=== PATIENT | female | born 1965 | race Hispanic/Latino ===

== ENCOUNTER 2018-06-13 11:48 | Inpatient (IN) | payer MEDICAID ==
[2018-06-13 11:51] VITALS: BMI 30.7
--- NOTE | 2018-06-13 12:16 | ED PDOC ---
Arrival/HPI - General Chief Complaint: Abdominal Pain Time Seen by Provider: 06/13/18 11:50 Historian: Patient - History of Present Illness Narrative History of Present Illness (Text): 06/13/18 12:11 52 y/o female with PMH of HTN, Diverticulitis, Ectopic , and COPD presents to the ED c/o abdominal pain x 2 days. Pain is sharp, left-sided, worse in LLQ. Worse with movement. Associated nausea and decreased PO intake. Pt admits to discomfort on urinating her in the ED. BM soft, brown, non-bloody, and daily as per baseline. Menopausal. Denies fevers, chills, diarrhea, constipation, vomiting, chest pain, SOB, palpitations, diaphoresis, back pain, weakness, numbness, or any other associated symptoms. Past Medical History - Infectious Disease Hx of Infectious Diseases: None - Reproductive Menopause: Yes - Cardiac Hx Hypertension: Yes - Pulmonary Hx Chronic Obstructive Pulmonary Disease (COPD): Yes Hx Emphysema: Yes - Gastrointestinal Hx Diverticulitis: Yes - Psychiatric Hx Substance Use: No - Surgical History Other/Comment: diverticulitis sx 2005 - Anesthesia Hx Anesthesia Reactions: No Hx Malignant Hyperthermia: No Family/Social History - Physician Review Nursing Documentation Reviewed: Yes Family/Social History: No Known Family HX Smoking Status: Former Smoker Hx Alcohol Use: No Hx Substance Use: No Allergies/Home Meds Allergies/Adverse Reactions: Allergies levofloxacin [From Levaquin] Allergy (Verified 06/13/18 12:14) SWELLING Home Medications: Home Meds Medication Instructions Recorded Confirmed Fluticasone Propionate [Clarispray] 1 puff NEB TID PRN 06/13/18 06/13/18 Review of Systems - Physician Review All systems were reviewed & negative as marked: Yes - Review of Systems Constitutional: Normal. absent: Fevers Eyes: Normal. absent: Vision Changes ENT: Normal. absent: Sore Throat, Sinus Congestion Respiratory: Normal. absent: SOB, Cough Cardiovascular: Normal. absent: Chest Pain, Syncope Gastrointestinal: Abdominal Pain, Nausea, Anorexia. absent: Stool Changes, Constipation, Diarrhea, Vomiting, Hematochezia Genitourinary Female: Dysuria (mild). absent: Frequency, Vaginal Bleeding, Va ginal Discharge Musculoskeletal: Normal. absent: Back Pain, Neck Pain Skin: Normal. absent: Rash Neurological: Normal. absent: Headache, Dizziness Endocrine: Normal Hemo/Lymphatic: Normal. absent: Adenopathy Psychiatric: Normal Physical Exam Vital Signs Reviewed: Yes Vital Signs Temp Pulse Resp BP Pulse Ox 06/13/18 11:48 97.9 F 101 H 18 138/95 H 98 Temperature: Afebrile Blood Pressure: Normal Pulse: Tachycardic Respiratory Rate: Normal Appearance: Positive for: Well-Appearing, Non-Toxic, Comfortable Pain Distress: None Mental Status: Positive for: Alert and Oriented X 3 - Systems Exam Head: Present: Atraumatic, Normocephalic Pupils: Present: PERRL Extroacular Muscles: Present: EOMI Conjunctiva: Present: Normal Mouth: Present: Moist Mucous Membranes Nose (External): Present: Atraumatic Nose (Internal): Present: Normal Inspection, Moist Neck: Present: Normal Range of Motion Respiratory/Chest: Present: Clear to Auscultation, Good Air Exchange. No: Respiratory Distress, Accessory Muscle Use Cardiovascular: Present: Regular Rate and Rhythm, Normal S1, S2, Peripheal Pulses Present. No: Murmurs Abdomen: Present: Tenderness (LUQ, LLQ), Normal Bowel Sounds. No: Distention, Peritoneal Signs, Rebound, Guarding Back: Present: Normal Inspection. No: CVA Tenderness, Paraspinal Tenderness Upper Extremity: Present: Normal Inspection, Normal ROM, NORMAL PULSES, Neurovascularly Intact, Capillary Refill < 2s. No: Cyanosis, Edema Lower Extremity: Present: Normal Inspection, NORMAL PULSES, Normal ROM, Neurovascularly Intact, Capillary Refill < 2 s. No: Edema, Tenderness, Temperature Abnormalties Neurological: Present: GCS=15, CN II-XII Intact, Speech Normal, Motor Func Grossly Intact, Normal Sensory Function, Gait Normal Skin: Present: Warm, Dry, Normal Color. No: Rashes Lymphatic: No: Cervical Adenopathy Psychiatric: Present: Alert, Oriented x 3, Normal Insight, Normal Concentration, Normal Affect, Normal Mood Medical Decision Making ED Course and Treatment: Initial Plan: * CBC, CMP * Coags * Mg, Phos * UA, culture * Lipase * EKG * CXR * CT Abd/Pelvis * IVF * Pepcid * Zofran * Toradol Patient's pain not controlled with Toradol, will give Morphine 2mg IVP. 15:[address] Browne, who accepts patient for inpatient admission to med-surg with diagnoses of Diverticulitis and UTI. Plan of care discussed with patient, who understands and agrees with plan of care. Patient resting comfortably in stretcher in NAD at this time. Vital signs stable. - Lab Interpretations Lab Results: 06/13/18 12:30 06/13/18 12:30 Lab Results 06/13/18 12:30: Sodium 138, Potassium 3.5 L, Chloride 102, Carbon Dioxide 27, Anion Gap 13, BUN 18, Creatinine 0.8, Est GFR ( Amer) > 60, Est GFR (Non- Af Amer) > 60, Random Glucose 98, Calcium 9.1, Magnesium 1.8, Total Bilirubin 2.0 H, AST 23, ALT 23, Alkaline Phosphatase 81, Total Protein 7.4, Albumin 4.2, Globulin 3.2, Albumin/Globulin Ratio 1.3, Lipase 26 06/13/18 12:30: PT 15.0 H, INR 1.30, APTT 28.3 06/13/18 12:30: WBC 11.7 H, RBC 4.67, Hgb 14.8, Hct 42.2, MCV 90.4, MCH 31.7, MCHC 35.1, RDW 13.9, Plt Count 220, MPV 10.1, Gran % 78.4 H, Lymph % (Auto) 13.8 L, [place] % (Auto) 6.9 H, Eos % (Auto) 0.5 L, Baso % (Auto) 0.4, Gran # 9.14 H, Lymph # (Auto) 1.6, [place] # (Auto) 0.8 H, Eos # (Auto) 0.1, Baso # (Auto) 0.05 06/13/18 12:15: Urine Color Yellow, Urine Appearance Cloudy, Urine pH 6.0, Ur Specific [place] >= 1.030, Urine Protein >=300 H, Urine Glucose (UA) Negative, Urine Ketones Trace H, Urine Blood Large H, Urine Nitrate Negative, Urine Bilirubin Small H, Urine Urobilinogen 0.2, Ur Leukocyte Esterase Trace H, Urine RBC 1 - 3, Urine WBC 10 - 15, Ur Epithelial Cells Many, Amorphous Sediment Small, Urine Bacteria Small I have reviewed the lab results: Yes - RAD Interpretation Narrative RAD Interpretations (Text): CXR: FINDINGS: LUNGS: No active pulmonary disease. PLEURA: No significant pleural effusion identified, no pneumothorax apparent. CARDIOVASCULAR: No aortic atherosclerotic calcification present. Normal cardiac size. No pulmonary vascular congestion. OSSEOUS STRUCTURES: No significant abnormalities. VISUALIZED UPPER ABDOMEN: Normal. OTHER FINDINGS: None. IMPRESSION: No active disease. CT Abd/Pelvis: FINDINGS: LOWER THORAX: Unremarkable. LIVER: Unremarkable. No gross lesion or ductal dilatation. GALLBLADDER AND BILE DUCTS: Unremarkable. PANCREAS: Unremarkable. No gross lesion or ductal dilatation. SPLEEN: Unremarkable. ADRENALS: Unremarkable. No mass. KIDNEYS AND URETERS: Unremarkable. No hydronephrosis. No solid mass. VASCULATURE: Unremarkable. No aortic aneurysm. No aortic atherosclerotic calcification or mural plaque present. BOWEL: There is diverticulitis in the descending colon. There is severe mural thickening and mesenteric inflammation. There is no evidence of abscess formation or free air APPENDIX: Previous appendectomy PERITONEUM: Unremarkable. No free fluid. No free air. LYMPH NODES: Unremarkable. No enlarged lymph nodes. BLADDER: Unremarkable. REPRODUCTIVE: Right-sided adnexal cyst measuring 19 x 43 mm BONES: No acute fracture. OTHER FINDINGS: None. IMPRESSION: There is diverticulitis in the descending colon. There is severe mural thickening and mesenteric inflammation. There is no evidence of abscess formation or free air Web Engineer: Radiologist - EKG Interpretation EKG Interpretation (Text): Rate 81; NSR; Normal intervals; No STEMI, T wave inversions in V1, V2 Compared to prior EKG on 05/27/17; similar with consistent T wave inversions Interpreted by ED Physician: Yes Type: 12 lead EKG Comparison: Com.w/previous EKG Disposition/Present on Arrival - Present on Arrival Any Indicators Present on Arrival: No History of DVT/PE: No History of Uncontrolled Diabetes: No Urinary Catheter: No History of Decub. Ulcer: No History Surgical Site Infection Following: None - Disposition Have Diagnosis and Disposition been Completed?: Yes Diagnosis: Diverticulitis Disposition: HOME/ ROUTINE Disposition Time: 15:15 Patient Plan: Admission Condition: IMPROVED
[2018-06-13] MEDS ORDERED: Sodium Chloride 0.9% 1,000 ML IV STA (12:17)
[2018-06-13 12:27] LABS: URINE BILIRUBIN SMALL (NEGATIVE); URINE BLOOD LARGE (NEGATIVE); URINE GLUCOSE (UA) NEGATIVE (NEGATIVE); URINE LEUKOCYTE ESTERASE TRACE Leu/uL (NEGATIVE); URINE PROTEIN >=300 mg/dL (<30 mg/dL); URINE UROBILINOGEN 0.2 E.U./dL (<1 E.U./dL)
[2018-06-13 12:30] LABS: URINE APPEARANCE CLOUDY (CLEAR); URINE COLOR YELLOW (YELLOW)
[2018-06-13 12:56] LABS: BASO # 0.05 K/mm3 (0.0-2.0); BASO % 0.4 % (0.0-3.0); EOS # 0.1 (0.0-0.7); EOS % 0.5 % (1.5-5.0); GRAN # 9.14 (1.4-6.5); GRAN % 78.4 % (50.0-68.0); HEMOGLOBIN 14.8 g/dL (12.0-16.0); LYMPH # 1.6 (1.2-3.4); LYMPH % 13.8 % (22.0-35.0); MEAN CELL VOLUME 90.4 fl (80.0-105.0); MEAN CORPUSCULAR HEMOGLOBIN 31.7 pg (25.0-35.0); MEAN CORPUSCULAR HGB CONC 35.1 g/dl (31.0-37.0); MEAN PLATELET VOLUME 10.1 fl (7.0-11.0); MONO # 0.8 (0.1-0.6); MONO % 6.9 % (1.0-6.0); RBC 4.67 10^6/uL (3.5-6.1); RED CELL DISTRIBUTION WIDTH 13.9 % (11.5-14.5); WHITE BLOOD COUNT 11.7 10^3/uL (4.5-11.0)
[2018-06-13 12:57] LABS: URINE EPITHELIAL CELLS MANY /hpf (0-5)
[2018-06-13 12:58] LABS: URINE AMORPHOUS SEDIMENT SMALL; URINE BACTERIA SMALL (NEG)
[2018-06-13 13:07] LABS: INR 1.3; PARTIAL THROMBOPLASTIN TIME 28.3 Seconds (25.1-36.5)
[2018-06-13 13:25] LABS: ALB/GLOB RATIO 1.3 (1.1-1.8); ALBUMIN 4.2 g/dL (3.0-4.8); ALT/SGPT 23 U/L (7-56); AST/SGOT 23 U/L (14-36); BLOOD UREA NITROGEN 18 mg/dL (7-21); CALCIUM 9.1 mg/dL (8.4-10.5); GFR NON-AFRICAN AMERICAN > 60
[2018-06-13 13:27] LABS: LIPASE 26 U/L (23-300)
[2018-06-13] MEDS ORDERED: Iohexol 350 MG/100 ML VIAL ONE (13:46)
--- NOTE | 2018-06-13 14:37 | CT ---
Date of service: 06/13/2018 PROCEDURE: CT Abdomen and Pelvis with contrast HISTORY: left sided abdominal pain COMPARISON: None. TECHNIQUE: Contrast dose: 100 cc of Omni 350 Radiation dose: Total exam DLP = 567.23 mGy-cm. This CT exam was performed using one or more of the following dose reduction techniques: Automated exposure control, adjustment of the mA and/or kV according to patient size, and/or use of iterative reconstruction technique. FINDINGS: LOWER THORAX: Unremarkable. LIVER: Unremarkable. No gross lesion or ductal dilatation. GALLBLADDER AND BILE DUCTS: Unremarkable. PANCREAS: Unremarkable. No gross lesion or ductal dilatation. SPLEEN: Unremarkable. ADRENALS: Unremarkable. No mass. KIDNEYS AND URETERS: Unremarkable. No hydronephrosis. No solid mass. VASCULATURE: Unremarkable. No aortic aneurysm. No aortic atherosclerotic calcification or mural plaque present. BOWEL: There is diverticulitis in the descending colon. There is severe mural thickening and mesenteric inflammation. There is no evidence of abscess formation or free air APPENDIX: Previous appendectomy PERITONEUM: Unremarkable. No free fluid. No free air. LYMPH NODES: Unremarkable. No enlarged lymph nodes. BLADDER: Unremarkable. REPRODUCTIVE: Right-sided adnexal cyst measuring 19 x 43 mm BONES: No acute fracture. OTHER FINDINGS: None. IMPRESSION: There is diverticulitis in the descending colon. There is severe mural thickening and mesenteric inflammation. There is no evidence of abscess formation or free air
--- NOTE | 2018-06-13 14:47 | RAD ---
Date of service: 06/13/2018 HISTORY: abdominal pain COMPARISON: No prior. FINDINGS: LUNGS: No active pulmonary disease. PLEURA: No significant pleural effusion identified, no pneumothorax apparent. CARDIOVASCULAR: No aortic atherosclerotic calcification present. Normal cardiac size. No pulmonary vascular congestion. OSSEOUS STRUCTURES: No significant abnormalities. VISUALIZED UPPER ABDOMEN: Normal. OTHER FINDINGS: None. IMPRESSION: No active disease.
--- NOTE | 2018-06-13 15:30 | CARD ---
APPROVED REPORT Date of service: 06/13/2018 EKG Measurement Heart [id number] <Conclusion> Poor data quality, interpretation may be adversely affected Normal sinus rhythm Cannot rule out Anterior infarct, age undetermined Abnormal ECG
[2018-06-13] MEDS ORDERED: Morphine 2 mg/ml ISec IVP STA (15:35)
[2018-06-13] MEDS ORDERED: metroNIDAZOLE IV 500 mg/100 ml 500 MG/100 ML BAG IVPB STA (15:50)
[2018-06-13] MEDS ORDERED: cefTRIAXone 1 gm 1 GM/100 ML BAG IVPB STA (15:51)
--- NOTE | 2018-06-13 16:48 | CP.PCM.HP ---
<FilipeBee salgado - Last Filed: 06/14/18 06:27> History of Present Illness - History of Present Illness History of Present Illness: Bee Dent PGY-1, Medicine H&P Note for Dr. Browne: CC: SOB x 2 days: Pt is a 52 yo F with pmhx of diverticulitis s/p hemicolectomy , HTN, ectopic , COPD (never intubated), who presents for 2 day hx of abd pain. Pt reports that the pain started 2 days ago, it started at 2 AM and woke her up. She states that the pain is localized to the LLQ and she rates it as a 7/10 that is non-radiating, made worse with movement or coughing. She states that she cant tolerate a diet since she becomes very nauseous but has not vomited as of yet. She reports her last about of diverticulitis was in when they performed a hemicolectomy. She is currently admitting to subjective fevers, chills, LLQ abd pain, nausea and dysuria, once which started in ED. She denies chest pain, palpitations, SOB, cough, or vomiting. Pmhx:diverticulitis s/p hemicolectomy , HTN, ectopic , COPD (never intubated) Pshx: Appendectomy, hemicolectomy , endoscopy, colonoscopy Meds: Albuterol inhaler All: Levaquin - hives and facial swelling Social: Quit smoking 1 year ago, smoked 1 ppd before quitting, Denies etoh and illicit drug use Fam: Mom: DM PMD: Dr. Duarte Pharm: Nataliya Present on Admission - Present on Admission Any Indicators Present on Admission: No Review of Systems - Review of Systems Review of Systems: 12 point ROS reviewed and is negative except for noted in HPI above. Past Patient History - Infectious Disease Hx of Infectious Diseases: None - Past Social History Smoking Status: Former Smoker - CARDIAC Hx Hypertension: Yes - PULMONARY Hx Chronic Obstructive Pulmonary Disease (COPD): Yes Hx Emphysema: Yes - GASTROINTESTINAL Hx Diverticulitis: Yes - PSYCHIATRIC Hx Substance Use: No - SURGICAL HISTORY Other/Comment: diverticulitis sx 2005 - ANESTHESIA Hx Anesthesia Reactions: No Hx Malignant Hyperthermia: No Meds Allergies/Adverse Reactions: Allergies Allergy/AdvReac Type Severity Reaction Status Date / Time levofloxacin [From Levaquin] Allergy SWELLING Verified 06/13/18 12:14 Physical Exam - Constitutional Appears: Non-toxic, No Acute Distress, Other (uncomfortable) - Head Exam Head Exam: ATRAUMATIC, NORMAL INSPECTION, NORMOCEPHALIC - Eye Exam Eye Exam: EOMI, Normal appearance, PERRL - Respiratory Exam Respiratory Exam: Clear to Auscultation Bilateral, NORMAL BREATHING PATTERN. absent: Accessory Muscle Use, Decreased Breath Sounds, Rales, Rhonchi, Wheezes, Respiratory Distress, Stridor - Cardiovascular Exam Cardiovascular Exam: RRR, +S1, +S2. absent: Diastolic murmur, Gallop, Rubs - GI/Abdominal Exam GI & Abdominal Exam: Guarding, Normal Bowel Sounds, Soft, Tenderness (Present in LLQ). absent: Rigid - Extremities Exam Extremities exam: Positive for: full ROM, normal capillary refill, normal inspection, pedal pulses present. Negative for: calf tenderness, pedal edema - Back Exam Back exam: NORMAL INSPECTION. absent: CVA tenderness (L), CVA tenderness (R) - Neurological Exam Neurological exam: Alert, Oriented x3 - Psychiatric Exam Psychiatric exam: Normal Affect, Normal Mood - Skin Skin Exam: Dry, Intact, Normal Color, Warm Results - Vital Signs Recent Vital Signs: Last Vital Signs Temp 98.8 F 06/13/18 15:20 Pulse 88 06/13/18 15:20 Resp 16 06/13/18 15:20 BP 133/90 06/13/18 15:20 Pulse Ox 97 06/13/18 15:20 - Labs Result Diagrams: 06/13/18 12:30 06/13/18 12:30 Labs: Laboratory Results - last 24 hr 06/13/18 06/13/18 06/13/18 12:15 12:30 12:30 WBC 11.7 H RBC 4.67 Hgb 14.8 Hct 42.2 MCV 90.4 MCH 31.7 MCHC 35.1 RDW 13.9 Plt Count 220 MPV 10.1 Gran % 78.4 H Lymph % (Auto) 13.8 L [place] % (Auto) 6.9 H Eos % (Auto) 0.5 L Baso % (Auto) 0.4 Gran # 9.14 H Lymph # (Auto) 1.6 [place] # (Auto) 0.8 H Eos # (Auto) 0.1 Baso # (Auto) 0.05 PT 15.0 H INR 1.30 APTT 28.3 Sodium Potassium Chloride Carbon Dioxide Anion Gap BUN Creatinine Est GFR ( Amer) Est GFR (Non-Af Amer) Random Glucose Calcium Magnesium Total Bilirubin AST ALT Alkaline Phosphatase Total Protein Albumin Globulin Albumin/Globulin Ratio Lipase Urine Color Yellow Urine Appearance Cloudy Urine pH 6.0 Ur Specific [place] >= 1.030 Urine Protein >=300 H Urine Glucose (UA) Negative Urine Ketones Trace H Urine Blood Large H Urine Nitrate Negative Urine Bilirubin Small H Urine Urobilinogen 0.2 Ur Leukocyte Esterase Trace H Urine RBC 1 - 3 Urine WBC 10 - 15 Ur Epithelial Cells Many Amorphous Sediment Small Urine Bacteria Small 06/13/18 12:30 WBC RBC Hgb Hct MCV MCH MCHC RDW Plt Count MPV Gran % Lymph % (Auto) [place] % (Auto) Eos % (Auto) Baso % (Auto) Gran # Lymph # (Auto) [place] # (Auto) Eos # (Auto) Baso # (Auto) PT INR APTT Sodium 138 Potassium 3.5 L Chloride 102 Carbon Dioxide 27 Anion Gap 13 BUN 18 Creatinine 0.8 Est GFR ( Amer) > 60 Est GFR (Non-Af Amer) > 60 Random Glucose 98 Calcium 9.1 Magnesium 1.8 Total Bilirubin 2.0 H AST 23 ALT 23 Alkaline Phosphatase 81 Total Protein 7.4 Albumin 4.2 Globulin 3.2 Albumin/Globulin Ratio 1.3 Lipase 26 Urine Color Urine Appearance Urine pH Ur Specific [place] Urine Protein Urine Glucose (UA) Urine Ketones Urine Blood Urine Nitrate Urine Bilirubin Urine Urobilinogen Ur Leukocyte Esterase Urine RBC Urine WBC Ur Epithelial Cells Amorphous Sediment Urine Bacteria Assessment & Plan - Assessment and Plan (Free Text) Assessment: Pt is a 52 yo F with pmhx of diverticulitis s/p hemicolectomy '05, HTN, ectopic , COPD (never intubated), who presents for 2 day hx of abd pain. CT abd/pelvis was done in ED, showed diverticulitis without evidence of abscess or free air. Plan: 1. Diverticulitis: - CT abd/Pelvis showed diverticulitis without abscess or free air, severe mural thickening and inflammation - Rocephin 1gm IV qd - Flagyl 500 TID - NPO - NS @ 100/hr - morphine 2 q4 IVP - Protonix 40 IVP - Zofran 4 q6 - GI consulted - Mayra - Surgery Consulted - [place] 2. Hypokalemia: - Repleting now, will follow up w/ AM labs 3. 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 Hx of COPD: - Duonebs Q4 PRN - Counseled pt to stop smoking 5. Hx of tobacco abuse: - Nicotine patch 6. PPX: GI: Protonix IV DVT: SCDs <Lorie Browne A - Last Filed: 06/14/18 21:25> Results - Vital Signs Recent Vital Signs: Last Vital Signs Temp 98.8 F 06/14/18 14:00 Pulse 83 06/14/18 14:00 Resp 18 06/14/18 14:00 BP 151/99 H 06/14/18 14:00 Pulse Ox 94 L 06/14/18 14:00 - Labs Result Diagrams: 06/14/18 08:30 06/14/18 08:30 Labs: Laboratory Results - last 24 hr 06/14/18 06/14/18 08:30 08:30 WBC 8.9 D RBC 3.99 Hgb 12.5 D Hct 36.1 MCV 90.5 MCH 31.3 MCHC 34.6 RDW 13.6 Plt Count 187 MPV 10.1 Gran % 75.6 H Lymph % (Auto) 17.0 L [place] % (Auto) 5.4 Eos % (Auto) 1.6 Baso % (Auto) 0.4 Gran # 6.75 H Lymph # (Auto) 1.5 [place] # (Auto) 0.5 Eos # (Auto) 0.1 Baso # (Auto) 0.04 Sodium 137 Potassium 3.9 Chloride 105 Carbon Dioxide 25 Anion Gap 11 BUN 15 Creatinine 0.7 Est GFR ( Amer) > 60 Est GFR (Non-Af Amer) > 60 Random Glucose 83 Calcium 8.6 Total Bilirubin 1.1 AST 19 ALT 24 Alkaline Phosphatase 66 Total Protein 6.5 Albumin 3.6 Globulin 2.8 Albumin/Globulin Ratio 1.3 Attending/Attestation - Attestation I have personally seen and examined this patient.: Yes I have fully participated in the care of the patient.: Yes I have reviewed all pertinent clinical information: Yes
[2018-06-13] MEDS ORDERED: Albuterol-Ipratrop 3 mg / 0.5 (3 ml) UD IH PRN (17:01)
[2018-06-13] MEDS ORDERED: Potassium Chl 20mEq & D5W 1,000 ML IV SCH (18:15)
[2018-06-13] MEDS: Morphine 2 mg/ml ISec IVP PRN ×2 (20:16→23:28)
[2018-06-13] MEDS: metroNIDAZOLE IV 500 mg/100 ml 500 MG/100 ML BAG IVPB SCH (23:27)
--- NOTE | 2018-06-14 02:03 | CP.PCM.CON ---
History of Present Illness - History of Present Illness History of Present Illness: 52F with PMHx of HTN, COPD, emphysema, colovaginal fistula, diverticulitis s/p sigmoidectomy with primary anastomosis in 2004, presented to [facility] with complaints of abdominal pain x2 days. Patient reports abdominal pain began Thursday at 2AM. Patient describes abdominal pain as sharp and localized to the LLQ. Patient rates abdominal pain as an 8/10 at its worst. Patient reports nausea but denies emesis. Patient states she had a sigmoidectomy back in 2004 after she was diagnosed with a colovaginal fistula 2/2 recurrent bouts of d iverticulitis. At time of examination patient denied fever/chills, chest pain, SOB, vomiting. Reports dysuria. Passing flatus. PMHx: as stated above PSHx: open appendectomy, sigmoidectomy w/ primary anastomosis (2004) Allergies: Levaquin - hives and facial swelling Social: Quit smoking 14 months ago, smoked 1 ppd x37yrs. Denies EtOH use. Denies illicit drug use Review of Systems - Review of Systems Review of Systems: 10 pt ROS unremarkable, except as stated in HPI Past Patient History - Infectious Disease Hx of Infectious Diseases: None - Past Social History Smoking Status: Former Smoker - CARDIAC Hx Hypertension: Yes - PULMONARY Hx Chronic Obstructive Pulmonary Disease (COPD): Yes Hx Emphysema: Yes - MUSCULOSKELETAL/RHEUMATOLOGICAL Hx Falls: No - GASTROINTESTINAL Hx Diverticulitis: Yes - PSYCHIATRIC Hx Substance Use: No - SURGICAL HISTORY Other/Comment: diverticulitis sx 2004 - ANESTHESIA Hx Anesthesia Reactions: No Hx Malignant Hyperthermia: No Meds Allergies/Adverse Reactions: Allergies Allergy/AdvReac Type Severity Reaction Status Date / Time levofloxacin [From Levaquin] Allergy SWELLING Verified 06/13/18 12:14 - Medications Medications: Current Medications Albuterol/Ipratropium (Duoneb 3 Mg/0.5 Mg (3 Ml) Ud) 3 ml IH [id number] PRN PRN Reason: Shortness of Breath Metronidazole (Flagyl) 500 mg in 100 mls @ 100 mls/hr IVPB Q8 RADHA; Protocol Last Admin: 06/13/18 23:27 Dose: 100 mls/hr Ceftriaxone Sodium (Rocephin 1 Gram Ivpb) 1 gm in 100 mls @ 100 mls/hr IVPB DAILY [facility]; Protocol Lactated Ringer's (Lactated Ringer's) 1,000 mls @ 100 mls/hr IV .Q10H RADHA Morphine Sulfate (Morphine) 2 mg IVP Q4H PRN PRN Reason: Pain, moderate (4-7) Last Admin: 06/13/18 23:28 Dose: 2 mg Nicotine (Nicoderm Cq) 1 patch TD DAILY [facility] Ondansetron HCl (Zofran Inj) 4 mg IVP Q6H PRN PRN Reason: Nausea/Vomiting Pantoprazole Sodium (Protonix Inj) 40 mg IVP DAILY [facility] Physical Exam - Constitutional Appears: No Acute Distress - Head Exam Head Exam: NORMOCEPHALIC - Eye Exam Eye Exam: EOMI, Normal appearance - ENT Exam ENT Exam: Mucous Membranes Moist - Respiratory Exam Respiratory Exam: NORMAL BREATHING PATTERN - Cardiovascular Exam Cardiovascular Exam: +S1, +S2 - GI/Abdominal Exam GI & Abdominal Exam: Rebound, Soft, Tenderness. absent: Distended, Firm, Guarding, Rigid - Neurological Exam Neurological exam: Alert, Oriented x3 - Psychiatric Exam Psychiatric exam: Normal Mood - Skin Skin Exam: Dry, Intact, Warm Results - Vital Signs Recent Vital Signs: Last Vital Signs Temp 98.8 F 06/13/18 15:20 Pulse 86 06/13/18 18:14 Resp 16 06/13/18 18:14 BP 140/95 H 06/13/18 18:14 Pulse Ox 97 06/13/18 15:20 - Labs Result Diagrams: 06/13/18 12:30 06/13/18 12:30 Labs: Laboratory Results - last 24 hr 06/13/18 06/13/18 06/13/18 12:15 12:30 12:30 WBC 11.7 H RBC 4.67 Hgb 14.8 Hct 42.2 MCV 90.4 MCH 31.7 MCHC 35.1 RDW 13.9 Plt Count 220 MPV 10.1 Gran % 78.4 H Lymph % (Auto) 13.8 L [place] % (Auto) 6.9 H Eos % (Auto) 0.5 L Baso % (Auto) 0.4 Gran # 9.14 H Lymph # (Auto) 1.6 [place] # (Auto) 0.8 H Eos # (Auto) 0.1 Baso # (Auto) 0.05 PT 15.0 H INR 1.30 APTT 28.3 Sodium Potassium Chloride Carbon Dioxide Anion Gap BUN Creatinine Est GFR ( Amer) Est GFR (Non-Af Amer) Random Glucose Calcium Magnesium Total Bilirubin AST ALT Alkaline Phosphatase Total Protein Albumin Globulin Albumin/Globulin Ratio Lipase Urine Color Yellow Urine Appearance Cloudy Urine pH 6.0 Ur Specific [place] >= 1.030 Urine Protein >=300 H Urine Glucose (UA) Negative Urine Ketones Trace H Urine Blood Large H Urine Nitrate Negative Urine Bilirubin Small H Urine Urobilinogen 0.2 Ur Leukocyte Esterase Trace H Urine RBC 1 - 3 Urine WBC 10 - 15 Ur Epithelial Cells Many Amorphous Sediment Small Urine Bacteria Small 06/13/18 12:30 WBC RBC Hgb Hct MCV MCH MCHC RDW Plt Count MPV Gran % Lymph % (Auto) [place] % (Auto) Eos % (Auto) Baso % (Auto) Gran # Lymph # (Auto) [place] # (Auto) Eos # (Auto) Baso # (Auto) PT INR APTT Sodium 138 Potassium 3.5 L Chloride 102 Carbon Dioxide 27 Anion Gap 13 BUN 18 Creatinine 0.8 Est GFR ( Amer) > 60 Est GFR (Non-Af Amer) > 60 Random Glucose 98 Calcium 9.1 Magnesium 1.8 Total Bilirubin 2.0 H AST 23 ALT 23 Alkaline Phosphatase 81 Total Protein 7.4 Albumin 4.2 Globulin 3.2 Albumin/Globulin Ratio 1.3 Lipase 26 Urine Color Urine Appearance Urine pH Ur Specific [place] Urine Protein Urine Glucose (UA) Urine Ketones Urine Blood Urine Nitrate Urine Bilirubin Urine Urobilinogen Ur Leukocyte Esterase Urine RBC Urine WBC Ur Epithelial Cells Amorphous Sediment Urine Bacteria Assessment & Plan - Assessment and Plan (Free Text) Assessment: 52F w/ descending colon diverticulitis Plan: -NPO -IVF -ABx -Analgesics prn -Anti-emetics prn -Serial abd exams -Will follow D/w Dr. Jaren Guzmán PGY3
[2018-06-14] MEDS: Lactated Ringer's 1,000 ML IV SCH ×3 (04:05→16:20)
[2018-06-14] MEDS: Morphine 2 mg/ml ISec IVP PRN ×2 (04:06→22:13)
[2018-06-14] MEDS: metroNIDAZOLE IV 500 mg/100 ml 500 MG/100 ML BAG IVPB SCH ×3 (05:14→22:12)
--- NOTE | 2018-06-14 07:50 | CP.PCM.PN ---
Subjective - Date & Time of Evaluation Date of Evaluation: 06/14/18 Time of Evaluation: 07:48 - Subjective Subjective: Surgery Progress Note for Dr. Eastman Patient seen and examined at bedside this morning. She states that for once, she is beginning to feel hungry, so much that she is wanting more ice chips. She states her abdominal pain has been decreasing. Denies nausea, vomiting, fevers, chills. She would like to know as soon as she is cleared to advance her diet. Objective - Vital Signs/Intake and Output Vital Signs (last 24 hours): Temp Pulse Resp BP Pulse Ox 98.8 F 86 16 140/95 H 97 06/13/18 15:20 06/13/18 18:14 06/13/18 18:14 06/13/18 18:14 06/13/18 15:20 - Medications Medications: Current Medications Albuterol/Ipratropium (Duoneb 3 Mg/0.5 Mg (3 Ml) Ud) 3 ml IH [id number] PRN PRN Reason: Shortness of Breath Metronidazole (Flagyl) 500 mg in 100 mls @ 100 mls/hr IVPB Q8 [facility]; Protocol Last Admin: 06/14/18 05:14 Dose: 100 mls/hr Ceftriaxone Sodium (Rocephin 1 Gram Ivpb) 1 gm in 100 mls @ 100 mls/hr IVPB DAILY [facility]; Protocol Lactated Ringer's (Lactated Ringer's) 1,000 mls @ 100 mls/hr IV .Q10H [facility] Last Admin: 06/14/18 04:05 Dose: 100 mls/hr Morphine Sulfate (Morphine) 2 mg IVP Q4H PRN PRN Reason: Pain, moderate (4-7) Last Admin: 06/14/18 04:06 Dose: 2 mg Nicotine (Nicoderm Cq) 1 patch TD DAILY [facility] Ondansetron HCl (Zofran Inj) 4 mg IVP Q6H PRN PRN Reason: Nausea/Vomiting Pantoprazole Sodium (Protonix Inj) 40 mg IVP DAILY [facility] - Labs Labs: 06/13/18 12:30 06/13/18 12:30 PT 15.0 SECONDS (9.4-12.5) H 06/13/18 12:30 INR 1.30 06/13/18 12:30 APTT 28.3 Seconds (25.1-36.5) 06/13/18 12:30 - Constitutional Appears: Well, Non-toxic - Head Exam Head Exam: ATRAUMATIC, NORMAL INSPECTION, NORMOCEPHALIC - Eye Exam Eye Exam: EOMI, Normal appearance - Neck Exam Neck Exam: Normal Inspection - Respiratory Exam Respiratory Exam: Wheezes (faint expiratory wheezing throughout all lung saeed) - Cardiovascular Exam Cardiovascular Exam: REGULAR RHYTHM - GI/Abdominal Exam GI & Abdominal Exam: Soft, Tenderness (LLQ TTP), Normal Bowel Sounds - Extremities Exam Extremities Exam: Normal Inspection - Neurological Exam Neurological Exam: Alert, Awake, Oriented x3 - Psychiatric Exam Psychiatric exam: Normal Affect, Normal Mood - Skin Skin Exam: Dry, Intact, Normal Color, Warm Assessment and Plan - Assessment and Plan (Free Text) Assessment: 52F w/ descending colon diverticulitis -Keep NPO except ice chips today, 06/14, to ensure adequate bowel rest -IVF -ABx -Analgesics prn -Anti-emetics prn -Serial abd exams -encourage OOB and IS -Will continue to follow Jasmin Law PGY1
[2018-06-14 08:42] LABS: BASO # 0.04 K/mm3 (0.0-2.0); BASO % 0.4 % (0.0-3.0); EOS # 0.1 (0.0-0.7); EOS % 1.6 % (1.5-5.0); GRAN # 6.75 (1.4-6.5); GRAN % 75.6 % (50.0-68.0); LYMPH # 1.5 (1.2-3.4); MEAN CELL VOLUME 90.5 fl (80.0-105.0); MEAN CORPUSCULAR HEMOGLOBIN 31.3 pg (25.0-35.0); MEAN CORPUSCULAR HGB CONC 34.6 g/dl (31.0-37.0); MEAN PLATELET VOLUME 10.1 fl (7.0-11.0); MONO # 0.5 (0.1-0.6); MONO % 5.4 % (1.0-6.0); RBC 3.99 10^6/uL (3.5-6.1); RED CELL DISTRIBUTION WIDTH 13.6 % (11.5-14.5); WHITE BLOOD COUNT 8.9 10^3/uL (4.5-11.0)
[2018-06-14 08:43] LABS: HEMOGLOBIN 12.5 g/dL (12.0-16.0)
[2018-06-14 08:44] LABS: ALB/GLOB RATIO 1.3 (1.1-1.8); ALBUMIN 3.6 g/dL (3.0-4.8); ALT/SGPT 24 U/L (7-56); AST/SGOT 19 U/L (14-36); BLOOD UREA NITROGEN 15 mg/dL (7-21); CALCIUM 8.6 mg/dL (8.4-10.5); GFR NON-AFRICAN AMERICAN > 60
[2018-06-14] MEDS: cefTRIAXone 1 gm 1 GM/100 ML BAG IVPB SCH (10:19)
--- NOTE | 2018-06-14 13:23 | CP.PCM.PN ---
Subjective - Date & Time of Evaluation Date of Evaluation: 06/14/18 Time of Evaluation: 09:00 - Subjective Subjective: Roderick Velazquez, PGY-1 Progress Note for Hospitalist Service Patient seen and evaluated at bedside. No acute events reported overnight. Pat ient reports mild abdominal pain. Denies fevers, chills, nausea, vomiting, distension. Patient reports hunger and desire to eat. Objective - Vital Signs/Intake and Output Vital Signs (last 24 hours): Temp Pulse Resp BP Pulse Ox 97.9 F 90 20 132/83 90 L 06/14/18 06:00 06/14/18 06:00 06/14/18 06:00 06/14/18 06:00 06/14/18 06:00 - Medications Medications: Current Medications Acetaminophen (Tylenol 325mg Tab) 650 mg PO Q6H PRN PRN Reason: Headache Albuterol/Ipratropium (Duoneb 3 Mg/0.5 Mg (3 Ml) Ud) 3 ml IH [id number] PRN PRN Reason: Shortness of Breath Metronidazole (Flagyl) 500 mg in 100 mls @ 100 mls/hr IVPB Q8 [facility]; Protocol Last Admin: 06/14/18 05:14 Dose: 100 mls/hr Ceftriaxone Sodium (Rocephin 1 Gram Ivpb) 1 gm in 100 mls @ 100 mls/hr IVPB DAILY [facility]; Protocol Last Admin: 06/14/18 10:19 Dose: 100 mls/hr Lactated Ringer's (Lactated Ringer's) 1,000 mls @ 100 mls/hr IV .Q10H [facility] Last Admin: 06/14/18 04:05 Dose: 100 mls/hr Morphine Sulfate (Morphine) 2 mg IVP Q4H PRN PRN Reason: Pain, moderate (4-7) Last Admin: 06/14/18 04:06 Dose: 2 mg Nicotine (Nicoderm Cq) 1 patch TD DAILY [facility] Last Admin: 06/14/18 10:37 Dose: Not Given Ondansetron HCl (Zofran Inj) 4 mg IVP Q6H PRN PRN Reason: Nausea/Vomiting Pantoprazole Sodium (Protonix Inj) 40 mg IVP DAILY [facility] Last Admin: 06/14/18 10:19 Dose: 40 mg - Labs Labs: 06/14/18 08:30 06/14/18 08:30 PT 15.0 SECONDS (9.4-12.5) H 06/13/18 12:30 INR 1.30 06/13/18 12:30 APTT 28.3 Seconds (25.1-36.5) 06/13/18 12:30 - Additional Findings Additional findings: - Constitutional Appears: Non-toxic, No Acute Distress, Other (uncomfortable) - Head Exam Head Exam: ATRAUMATIC, NORMAL INSPECTION, NORMOCEPHALIC - Eye Exam Eye Exam: EOMI, Normal appearance, PERRL - Respiratory Exam Respiratory Exam: Clear to Auscultation Bilateral, NORMAL BREATHING PATTERN. absent: Accessory Muscle Use, Decreased Breath Sounds, Rales, Rhonchi, Wheezes, Respiratory Distress, Stridor - Cardiovascular Exam Cardiovascular Exam: RRR, +S1, +S2. absent: Diastolic murmur, Gallop, Rubs - GI/Abdominal Exam GI & Abdominal Exam: Guarding LLQ, Normal Bowel Sounds, Soft, Tenderness (Present in LLQ). absent: Rigid - Extremities Exam Extremities exam: Positive for: full ROM, normal capillary refill, normal inspection, pedal pulses present. Negative for: calf tenderness, pedal edema - Back Exam Back exam: NORMAL INSPECTION. absent: CVA tenderness (L), CVA tenderness (R) - Neurological Exam Neurological exam: Alert, Oriented x3 - Psychiatric Exam Psychiatric exam: Normal Affect, Normal Mood - Skin Skin Exam: Dry, Intact, Normal Color, Warm Assessment and Plan - Assessment and Plan (Free Text) Assessment: 52 yo F with pmhx of diverticulitis s/p hemicolectomy '05, HTN, ectopic , COPD (never intubated), who presents for 2 day hx of abd pain. CT abd/pelvis showed diverticulitis without evidence of abscess or free air. Plan: Diverticulitis: - CT abd/Pelvis showed diverticulitis without abscess or free air, severe mural thickening and inflammation - Rocephin 1gm IV qd - Flagyl 500 TID - NPO - NS @ 100/hr - morphine 2 q4 IVP - Protonix 40 IVP - Zofran 4 mg q6 - GI consulted - Dr. Nunez - recs appreciated - Surgery Consulted - Dr. 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 Alfaro. Roderick Velazquez, PGY-1
--- NOTE | 2018-06-14 15:50 | CP.PCM.CON ---
<Darrell Weinstein - Last Filed: 06/14/18 20:09> History of Present Illness - History of Present Illness History of Present Illness: PGY6 GI Fellow Consult Note Patient is a 52yo female with PMHx significant for complicated diverticulitis with colovaginal fistula formation and subsequent sigmoidectomy and repair, HTN, ectopic , COPD who presented to the ED with complaint of left lower quadrant abdominal pain. Symptoms began Thursday evening and progressively worsened over the weekend with associated loose stool. Patient developed nausea, decreased appetite and noted pain was exacerbated by movement and walking. As pain became unbearable at home and she could no longer ambulate without discomfort, she came to the ED for evaluation. Prior to Thursday, patient was well and had no complaints. Specifically, she denies any recent weight loss, sick contacts or travel. 12 system ROS performed and negative except where stated PMHx: See HPI PSHx: Appendectomy, sigmoidectomy w/ primary anastomosis (2004) FHx: Discussed with patient and denies any significant family history Social: Former smoker (>1 year but 37 pack year history), denies EtOH or illicit drug use Endo: EGD/Colonoscopy in 2016 at [facility] – [place], [place] - unknown results and not available for review at this time Past Patient History - Infectious Disease Hx of Infectious Diseases: None - Past Social History Smoking Status: Former Smoker - CARDIAC Hx Hypertension: Yes - PULMONARY Hx Chronic Obstructive Pulmonary Disease (COPD): Yes Hx Emphysema: Yes - MUSCULOSKELETAL/RHEUMATOLOGICAL Hx Falls: No - GASTROINTESTINAL Hx Diverticulitis: Yes - PSYCHIATRIC Hx Substance Use: No - SURGICAL HISTORY Other/Comment: diverticulitis sx 2004 - ANESTHESIA Hx Anesthesia Reactions: No Hx Malignant Hyperthermia: No Meds Allergies/Adverse Reactions: Allergies Allergy/AdvReac Type Severity Reaction Status Date / Time levofloxacin [From Levaquin] Allergy SWELLING Verified 06/13/18 12:14 - Medications Medications: Current Medications Acetaminophen (Tylenol 325mg Tab) 650 mg PO Q6H PRN PRN Reason: Headache Albuterol/Ipratropium (Duoneb 3 Mg/0.5 Mg (3 Ml) Ud) 3 ml IH [id number] PRN PRN Reason: Shortness of Breath Metronidazole (Flagyl) 500 mg in 100 mls @ 100 mls/hr IVPB Q8 [facility]; Protocol Last Admin: 06/14/18 13:15 Dose: 100 mls/hr Ceftriaxone Sodium (Rocephin 1 Gram Ivpb) 1 gm in 100 mls @ 100 mls/hr IVPB DAILY [facility]; Protocol Last Admin: 06/14/18 10:19 Dose: 100 mls/hr Lactated Ringer's (Lactated Ringer's) 1,000 mls @ 100 mls/hr IV .Q10H [facility] Last Admin: 06/14/18 04:05 Dose: 100 mls/hr Morphine Sulfate (Morphine) 2 mg IVP Q4H PRN PRN Reason: Pain, moderate (4-7) Last Admin: 06/14/18 04:06 Dose: 2 mg Nicotine (Nicoderm Cq) 1 patch TD DAILY [facility] Last Admin: 06/14/18 10:37 Dose: Not Given Ondansetron HCl (Zofran Inj) 4 mg IVP Q6H PRN PRN Reason: Nausea/Vomiting Pantoprazole Sodium (Protonix Inj) 40 mg IVP DAILY [facility] Last Admin: 06/14/18 10:19 Dose: 40 mg Physical Exam - Constitutional Appears: Non-toxic, No Acute Distress - Eye Exam Eye Exam: EOMI, PERRL - ENT Exam ENT Exam: Mucous Membranes Moist - Respiratory Exam Respiratory Exam: Clear to Auscultation Bilateral. absent: Rales, Rhonchi, Wheezes - Cardiovascular Exam Cardiovascular Exam: RRR, +S1, +S2 - GI/Abdominal Exam GI & Abdominal Exam: Normal Bowel Sounds, Soft, Tenderness (LLQ). absent: Distended, Firm, Guarding, Hernia, Organomegaly, Rigid - Extremities Exam Extremities exam: Positive for: normal inspection. Negative for: pedal edema - Neurological Exam Neurological exam: Alert, Oriented x3 - Psychiatric Exam Psychiatric exam: Normal Affect, Normal Mood - Skin Skin Exam: Dry, Warm Results - Vital Signs Recent Vital Signs: Last Vital Signs Temp 98.8 F 06/14/18 14:00 Pulse 83 06/14/18 14:00 Resp 18 06/14/18 14:00 BP 151/99 H 06/14/18 14:00 Pulse Ox 94 L 06/14/18 14:00 - Labs Result Diagrams: 06/14/18 08:30 06/14/18 08:30 Labs: Laboratory Results - last 24 hr 06/14/18 06/14/18 08:30 08:30 WBC 8.9 D RBC 3.99 Hgb 12.5 D Hct 36.1 MCV 90.5 MCH 31.3 MCHC 34.6 RDW 13.6 Plt Count 187 MPV 10.1 Gran % 75.6 H Lymph % (Auto) 17.0 L [place] % (Auto) 5.4 Eos % (Auto) 1.6 Baso % (Auto) 0.4 Gran # 6.75 H Lymph # (Auto) 1.5 [place] # (Auto) 0.5 Eos # (Auto) 0.1 Baso # (Auto) 0.04 Sodium 137 Potassium 3.9 Chloride 105 Carbon Dioxide 25 Anion Gap 11 BUN 15 Creatinine 0.7 Est GFR ( Amer) > 60 Est GFR (Non-Af Amer) > 60 Random Glucose 83 Calcium 8.6 Total Bilirubin 1.1 AST 19 ALT 24 Alkaline Phosphatase 66 Total Protein 6.5 Albumin 3.6 Globulin 2.8 Albumin/Globulin Ratio 1.3 Assessment & Plan - Assessment and Plan (Free Text) Assessment: Patient is a 52yo female with PMHx significant for complicated diverticulitis with colovaginal fistula formation and subsequent sigmoidectomy and repair, HTN, ectopic , COPD who presented to the ED with complaint of left lower quadrant abdominal pain -Left lower quadrant abdominal pain with concern for acute diverticulitis Plan: -Agree with antibiotics - on Ceftriaxone/Flagyl - would complete a 10 day course -Patient would benefit from colonoscopy 6-8 weeks from resolution of acute event -May consider more advanced imaging of pelvis -OK to start clear liquid diet and advance as tolerated from GI standpoint -Pain control per primary team - Date & Time Date: 06/14/18 Time: 11:00 <Steve Nunez V - Last Filed: 06/14/18 23:14> Meds - Medications Medications: Current Medications Acetaminophen (Tylenol 325mg Tab) 650 mg PO Q6H PRN PRN Reason: Headache Last Admin: 06/14/18 17:43 Dose: 650 mg Albuterol/Ipratropium (Duoneb 3 Mg/0.5 Mg (3 Ml) Ud) 3 ml IH [id number] PRN PRN Reason: Shortness of Breath Metronidazole (Flagyl) 500 mg in 100 mls @ 100 mls/hr IVPB Q8 [facility]; Protocol Last Admin: 06/14/18 22:12 Dose: 100 mls/hr Ceftriaxone Sodium (Rocephin 1 Gram Ivpb) 1 gm in 100 mls @ 100 mls/hr IVPB DAILY [facility]; Protocol Last Admin: 06/14/18 10:19 Dose: 100 mls/hr Lactated Ringer's (Lactated Ringer's) 1,000 mls @ 100 mls/hr IV .Q10H [facility] Last Admin: 06/14/18 16:20 Dose: 100 mls/hr Morphine Sulfate (Morphine) 2 mg IVP Q4H PRN PRN Reason: Pain, moderate (4-7) Last Admin: 06/14/18 22:13 Dose: 2 mg Nicotine (Nicoderm Cq) 1 patch TD DAILY [facility] Last Admin: 06/14/18 10:37 Dose: Not Given Ondansetron HCl (Zofran Inj) 4 mg IVP Q6H PRN PRN Reason: Nausea/Vomiting Pantoprazole Sodium (Protonix Inj) 40 mg IVP DAILY [facility] Last Admin: 06/14/18 10:19 Dose: 40 mg Results - Vital Signs Recent Vital Signs: Last Vital Signs Temp 98.1 F 06/14/18 22:00 Pulse 81 06/14/18 22:00 Resp 18 06/14/18 22:00 BP 147/96 H 06/14/18 22:00 Pulse Ox 91 L 06/14/18 22:00 - Labs Result Diagrams: 06/14/18 08:30 06/14/18 08:30 Labs: Laboratory Results - last 24 hr 06/14/18 06/14/18 08:30 08:30 WBC 8.9 D RBC 3.99 Hgb 12.5 D Hct 36.1 MCV 90.5 MCH 31.3 MCHC 34.6 RDW 13.6 Plt Count 187 MPV 10.1 Gran % 75.6 H Lymph % (Auto) 17.0 L [place] % (Auto) 5.4 Eos % (Auto) 1.6 Baso % (Auto) 0.4 Gran # 6.75 H Lymph # (Auto) 1.5 [place] # (Auto) 0.5 Eos # (Auto) 0.1 Baso # (Auto) 0.04 Sodium 137 Potassium 3.9 Chloride 105 Carbon Dioxide 25 Anion Gap 11 BUN 15 Creatinine 0.7 Est GFR ( Amer) > 60 Est GFR (Non-Af Amer) > 60 Random Glucose 83 Calcium 8.6 Total Bilirubin 1.1 AST 19 ALT 24 Alkaline Phosphatase 66 Total Protein 6.5 Albumin 3.6 Globulin 2.8 Albumin/Globulin Ratio 1.3 Attending/Attestation - Attestation I have personally seen and examined this patient.: Yes I have fully participated in the care of the patient.: Yes I have reviewed all pertinent clinical information: Yes Notes (Text): This is an addendum to GI consult report dictated by the GI Fellow.The patient was seen and examined earlier. Medical records, lab studies, imagings were reviewed. Last 24 hours events reviewed. Agreed with the above treatment plan as outlined in GI Fellow 's notes with the addition of the following The CT scan was reviewed On examination patient has tenderss in the left lower quadrant with the multiple diverticula Continue antibiotics Clear liquid diet MRI of the pelvis 06/14/18 23:10
[2018-06-15 06:59] LABS: BASO # 0.04 K/mm3 (0.0-2.0); BASO % 0.7 % (0.0-3.0); EOS # 0.1 (0.0-0.7); EOS % 1.9 % (1.5-5.0); GRAN # 3.92 (1.4-6.5); GRAN % 69.4 % (50.0-68.0); HEMOGLOBIN 12.2 g/dL (12.0-16.0); LYMPH # 1.3 (1.2-3.4); LYMPH % 22.3 % (22.0-35.0); MEAN CELL VOLUME 88.9 fl (80.0-105.0); MEAN CORPUSCULAR HEMOGLOBIN 30.8 pg (25.0-35.0); MEAN CORPUSCULAR HGB CONC 34.7 g/dl (31.0-37.0); MEAN PLATELET VOLUME 10.1 fl (7.0-11.0); MONO # 0.3 (0.1-0.6); MONO % 5.7 % (1.0-6.0); RBC 3.96 10^6/uL (3.5-6.1); RED CELL DISTRIBUTION WIDTH 13.6 % (11.5-14.5); WHITE BLOOD COUNT 5.7 10^3/uL (4.5-11.0)
[2018-06-15 07:22] LABS: ALB/GLOB RATIO 1.2 (1.1-1.8); ALBUMIN 3.4 g/dL (3.0-4.8); ALT/SGPT 28 U/L (7-56); AST/SGOT 23 U/L (14-36); BLOOD UREA NITROGEN 12 mg/dL (7-21); CALCIUM 8.7 mg/dL (8.4-10.5); GFR NON-AFRICAN AMERICAN > 60
--- NOTE | 2018-06-15 09:00 | CP.PCM.PN ---
Subjective - Date & Time of Evaluation Date of Evaluation: 06/15/18 Time of Evaluation: 08:51 - Subjective Subjective: PGY-[address] Eastman Patient seen and examined at bedside. Diet has been advanced to clears, patient tolerating. She states her abdominal pain was improving until something knocked into her hospital bed overnight and since then she has had persistent LLQ pain. Last BM was 06/12. Patient denies any nausea, vomiting, diarrhea, chest pain, dizziness. Objective - Vital Signs/Intake and Output Vital Signs (last 24 hours): Temp Pulse Resp BP Pulse Ox 97.5 F L 73 20 168/90 H 96 06/15/18 06:00 06/15/18 06:00 06/15/18 06:00 06/15/18 06:00 06/15/18 06:00 Intake and Output: 06/15/18 06/15/18 06:59 18:59 Intake Total 0 Balance 0 - Medications Medications: Current Medications Acetaminophen (Tylenol 325mg Tab) 650 mg PO Q6H PRN PRN Reason: Headache Last Admin: 06/14/18 17:43 Dose: 650 mg Albuterol/Ipratropium (Duoneb 3 Mg/0.5 Mg (3 Ml) Ud) 3 ml IH [id number] PRN PRN Reason: Shortness of Breath Metronidazole (Flagyl) 500 mg in 100 mls @ 100 mls/hr IVPB Q8 [facility]; Protocol Last Admin: 06/14/18 22:12 Dose: 100 mls/hr Ceftriaxone Sodium (Rocephin 1 Gram Ivpb) 1 gm in 100 mls @ 100 mls/hr IVPB DAILY [facility]; Protocol Last Admin: 06/14/18 10:19 Dose: 100 mls/hr Lactated Ringer's (Lactated Ringer's) 1,000 mls @ 100 mls/hr IV .Q10H [facility] Last Admin: 06/14/18 16:20 Dose: 100 mls/hr Morphine Sulfate (Morphine) 2 mg IVP Q4H PRN PRN Reason: Pain, moderate (4-7) Last Admin: 06/14/18 22:13 Dose: 2 mg Nicotine (Nicoderm Cq) 1 patch TD DAILY [facility] Last Admin: 06/14/18 10:37 Dose: Not Given Ondansetron HCl (Zofran Inj) 4 mg IVP Q6H PRN PRN Reason: Nausea/Vomiting Pantoprazole Sodium (Protonix Inj) 40 mg IVP DAILY [facility] Last Admin: 06/14/18 10:19 Dose: 40 mg - Labs Labs: 06/15/18 06:20 06/15/18 06:20 PT 15.0 SECONDS (9.4-12.5) H 06/13/18 12:30 INR 1.30 06/13/18 12:30 APTT 28.3 Seconds (25.1-36.5) 06/13/18 12:30 - Constitutional Appears: Non-toxic, No Acute Distress - Head Exam Head Exam: ATRAUMATIC, NORMAL INSPECTION - Eye Exam Eye Exam: EOMI - ENT Exam ENT Exam: Mucous Membranes Moist - Respiratory Exam Respiratory Exam: Clear to Ausculation Bilateral, NORMAL BREATHING PATTERN. absent: Rhonchi, Wheezes - Cardiovascular Exam Cardiovascular Exam: REGULAR RHYTHM, +S1, +S2 - GI/Abdominal Exam GI & Abdominal Exam: Soft, Tenderness (LLQ tenderness. No rebound, no guarding.), Normal Bowel Sounds. absent: Distended, Rigid, Rebound - Extremities Exam Extremities Exam: absent: Pedal Edema, Tenderness - Neurological Exam Neurological Exam: Alert, Awake, CN II-XII Intact - Psychiatric Exam Psychiatric exam: Normal Affect, Normal Mood - Skin Skin Exam: Dry, Intact, Normal Color, Warm Assessment and Plan - Assessment and Plan (Free Text) Assessment: 51 year old female with PMHx diverticulitis s/p hemicolectomy 2004 presents with abdominal pain and diverticulitis of descending colon on CT Plan: Patient advanced to clears last night per GI. Continue with clears, patient tolerating. Continue Abx - Ceftriaxone, Flagyl F/u MRI pelvis Continue to monitor symptoms No acute surgical intervention at this time
[2018-06-15] MEDS: cefTRIAXone 1 gm 1 GM/100 ML BAG IVPB SCH (10:18)
[2018-06-15] MEDS: Morphine 2 mg/ml ISec IVP PRN (10:19)
--- NOTE | 2018-06-15 12:54 | CP.PCM.PN ---
<Darrell Weinstein - Last Filed: 06/15/18 16:27> Subjective - Date & Time of Evaluation Date of Evaluation: 06/15/18 Time of Evaluation: 08:20 - Subjective Subjective: PGY6 GI Fellow Progress Note Patient seen and examined bedside this morning. The patient states she had some mild increase in LLQ abdominal pain this morning which has since subsided. Tolerating liquid diet without issue. No events overnight. 12 system ROS performed and negative except where stated Objective - Vital Signs/Intake and Output Vital Signs (last 24 hours): Temp Pulse Resp BP Pulse Ox 97.5 F L 73 20 168/90 H 96 06/15/18 06:00 06/15/18 06:00 06/15/18 06:00 06/15/18 06:00 06/15/18 06:00 Intake and Output: 06/15/18 06/15/18 06:59 18:59 Intake Total 0 Balance 0 - Medications Medications: Current Medications Acetaminophen (Tylenol 325mg Tab) 650 mg PO Q6H PRN PRN Reason: Headache Last Admin: 06/14/18 17:43 Dose: 650 mg Albuterol/Ipratropium (Duoneb 3 Mg/0.5 Mg (3 Ml) Ud) 3 ml IH [id number] PRN PRN Reason: Shortness of Breath Metronidazole (Flagyl) 500 mg in 100 mls @ 100 mls/hr IVPB Q8 [facility]; Protocol Last Admin: 06/14/18 22:12 Dose: 100 mls/hr Ceftriaxone Sodium (Rocephin 1 Gram Ivpb) 1 gm in 100 mls @ 100 mls/hr IVPB DAILY [facility]; Protocol Last Admin: 06/15/18 10:18 Dose: 100 mls/hr Lactated Ringer's (Lactated Ringer's) 1,000 mls @ 100 mls/hr IV .Q10H [facility] Last Admin: 06/14/18 16:20 Dose: 100 mls/hr Morphine Sulfate (Morphine) 2 mg IVP Q4H PRN PRN Reason: Pain, moderate (4-7) Last Admin: 06/15/18 10:19 Dose: 2 mg Nicotine (Nicoderm Cq) 1 patch TD DAILY [facility] Last Admin: 06/15/18 10:18 Dose: Not Given Ondansetron HCl (Zofran Inj) 4 mg IVP Q6H PRN PRN Reason: Nausea/Vomiting Pantoprazole Sodium (Protonix Inj) 40 mg IVP DAILY [facility] Last Admin: 06/15/18 10:16 Dose: 40 mg - Labs Labs: 06/15/18 06:20 06/15/18 06:20 PT 15.0 SECONDS (9.4-12.5) H 06/13/18 12:30 INR 1.30 06/13/18 12:30 APTT 28.3 Seconds (25.1-36.5) 06/13/18 12:30 - Constitutional Appears: Non-toxic, No Acute Distress - Eye Exam Eye Exam: EOMI, PERRL - ENT Exam ENT Exam: Mucous Membranes Moist - Respiratory Exam Respiratory Exam: Clear to Ausculation Bilateral. absent: Rales, Rhonchi, Wheezes - Cardiovascular Exam Cardiovascular Exam: RRR, +S1, +S2 - GI/Abdominal Exam GI & Abdominal Exam: Soft, Tenderness (LLQ), Normal Bowel Sounds. absent: Distended, Firm, Guarding, Rigid, Organomegaly - Extremities Exam Extremities Exam: Normal Inspection. absent: Pedal Edema - Neurological Exam Neurological Exam: Alert, Awake, Oriented x3 - Psychiatric Exam Psychiatric exam: Normal Affect, Normal Mood - Skin Skin Exam: Dry, Warm Assessment and Plan - Assessment and Plan (Free Text) Assessment: Patient is a 52yo female with PMHx significant for complicated diverticulitis with colovaginal fistula formation and subsequent sigmoidectomy and repair, HTN, ectopic , COPD who presented to the ED with complaint of left lower quadrant abdominal pain -Left lower quadrant abdominal pain with concern for acute diverticulitis Plan: -Recommend more advanced cross-sectional imaging with MRI Pelvis however patient cannot remove metal rings on fingers (swollen) and is refusing to have rings cut; no evidence of circulation compromise presently, recommend monitoring -Continue with conservative management - on Ceftriaxone/Flagyl -Tolerated liquids last night and this morning, maintain today and consider advancing for dinner to soft diet if tolerating -Patient would benefit from colonoscopy 6-8 weeks from resolution of acute event -Pain control per primary team <Steve Nunez V - Last Filed: 06/15/18 23:05> Objective - Vital Signs/Intake and Output Vital Signs (last 24 hours): Temp Pulse Resp BP Pulse Ox 99 F 110 H 18 104/61 96 06/15/18 22:25 06/15/18 22:25 06/15/18 22:25 06/15/18 22:25 06/15/18 22:25 - Medications Medications: Current Medications Acetaminophen (Tylenol 325mg Tab) 650 mg PO Q6H PRN PRN Reason: Headache Last Admin: 06/14/18 17:43 Dose: 650 mg Albuterol/Ipratropium (Duoneb 3 Mg/0.5 Mg (3 Ml) Ud) 3 ml IH [id number] PRN PRN Reason: Shortness of Breath Metronidazole (Flagyl) 500 mg in 100 mls @ 100 mls/hr IVPB Q8 [facility]; Protocol Last Admin: 06/15/18 21:06 Dose: 100 mls/hr Ceftriaxone Sodium (Rocephin 1 Gram Ivpb) 1 gm in 100 mls @ 100 mls/hr IVPB DAILY [facility]; Protocol Last Admin: 06/15/18 10:18 Dose: 100 mls/hr Lactated Ringer's (Lactated Ringer's) 1,000 mls @ 100 mls/hr IV .Q10H [facility] Last Admin: 06/15/18 21:06 Dose: 100 mls/hr Morphine Sulfate (Morphine) 2 mg IVP Q4H PRN PRN Reason: Pain, moderate (4-7) Last Admin: 06/15/18 10:19 Dose: 2 mg Nicotine (Nicoderm Cq) 1 patch TD DAILY [facility] Last Admin: 06/15/18 10:18 Dose: Not Given Ondansetron HCl (Zofran Inj) 4 mg IVP Q6H PRN PRN Reason: Nausea/Vomiting Pantoprazole Sodium (Protonix Inj) 40 mg IVP DAILY [facility] Last Admin: 06/15/18 10:16 Dose: 40 mg - Labs Labs: 06/15/18 06:20 06/15/18 06:20 PT 15.0 SECONDS (9.4-12.5) H 06/13/18 12:30 INR 1.30 06/13/18 12:30 APTT 28.3 Seconds (25.1-36.5) 06/13/18 12:30 Attending/Attestation - Attestation I have personally seen and examined this patient.: Yes I have fully participated in the care of the patient.: Yes I have reviewed all pertinent clinical information, including history, physical exam and plan: Yes Notes (Text): This is an addendum to GI progress report dictated by the GI Fellow.The patient was seen and examined earlier. Medical records, lab studies, imagings were reviewed. Last 24 hours events reviewed. Agreed with the above treatment plan as outlined in GI Fellow 's notes with the addition of the following 06/15/18 23:04
[2018-06-15] MEDS: metroNIDAZOLE IV 500 mg/100 ml 500 MG/100 ML BAG IVPB SCH ×2 (13:31→21:06)
--- NOTE | 2018-06-15 16:51 | CP.PCM.PN ---
<Roderick Velazquez - Last Filed: 06/15/18 21:07> Subjective - Date & Time of Evaluation Date of Evaluation: 06/15/18 Time of Evaluation: 09:00 - Subjective Subjective: Roderick Velazquez PGY-1 Progress Note for Hospitalist Service Patient seen and evaluated at bedside. No acute events reported overnight. Patient reports mild abdominal pain in LLQ. Denies fevers, chills, nausea, vomiting, distension. Patient reports hunger and desire to eat. Patient states her hands feel bloated. Objective - Vital Signs/Intake and Output Vital Signs (last 24 hours): Temp Pulse Resp BP Pulse Ox 97.5 F L 73 20 168/90 H 96 06/15/18 06:00 06/15/18 06:00 06/15/18 06:00 06/15/18 06:00 06/15/18 06:00 Intake and Output: 06/15/18 06/15/18 06:59 18:59 Intake Total 0 Balance 0 - Medications Medications: Current Medications Acetaminophen (Tylenol 325mg Tab) 650 mg PO Q6H PRN PRN Reason: Headache Last Admin: 06/14/18 17:43 Dose: 650 mg Albuterol/Ipratropium (Duoneb 3 Mg/0.5 Mg (3 Ml) Ud) 3 ml IH [id number] PRN PRN Reason: Shortness of Breath Metronidazole (Flagyl) 500 mg in 100 mls @ 100 mls/hr IVPB Q8 RADHA; Protocol Last Admin: 06/15/18 13:31 Dose: 100 mls/hr Ceftriaxone Sodium (Rocephin 1 Gram Ivpb) 1 gm in 100 mls @ 100 mls/hr IVPB DAILY RADHA; Protocol Last Admin: 06/15/18 10:18 Dose: 100 mls/hr Lactated Ringer's (Lactated Ringer's) 1,000 mls @ 100 mls/hr IV .Q10H RADHA Last Admin: 06/14/18 16:20 Dose: 100 mls/hr Morphine Sulfate (Morphine) 2 mg IVP Q4H PRN PRN Reason: Pain, moderate (4-7) Last Admin: 06/15/18 10:19 Dose: 2 mg Nicotine (Nicoderm Cq) 1 patch TD DAILY RADHA Last Admin: 06/15/18 10:18 Dose: Not Given Ondansetron HCl (Zofran Inj) 4 mg IVP Q6H PRN PRN Reason: Nausea/Vomiting Pantoprazole Sodium (Protonix Inj) 40 mg IVP DAILY RADHA Last Admin: 06/15/18 10:16 Dose: 40 mg - Labs Labs: 06/15/18 06:20 06/15/18 06:20 PT 15.0 SECONDS (9.4-12.5) H 06/13/18 12:30 INR 1.30 06/13/18 12:30 APTT 28.3 Seconds (25.1-36.5) 06/13/18 12:30 - Additional Findings Additional findings: - Constitutional Appears: Non-toxic, No Acute Distress - Head Exam Head Exam: ATRAUMATIC, NORMAL INSPECTION, NORMOCEPHALIC - Eye Exam Eye Exam: EOMI, Normal appearance, PERRL - Respiratory Exam Respiratory Exam: Clear to Auscultation Bilateral, NORMAL BREATHING PATTERN. absent: Accessory Muscle Use, Decreased Breath Sounds, Rales, Rhonchi, Wheezes, Respiratory Distress, Stridor - Cardiovascular Exam Cardiovascular Exam: RRR, +S1, +S2. absent: Diastolic murmur, Gallop, Rubs - GI/Abdominal Exam GI & Abdominal Exam: Guarding LLQ, Normal Bowel Sounds, Soft, Tenderness (Present in LLQ). absent: Rigid - Extremities Exam Extremities exam: Positive for: full ROM, normal capillary refill, normal inspe ction, pedal pulses present. Negative for: calf tenderness, pedal edema - Back Exam Back exam: NORMAL INSPECTION. absent: CVA tenderness (L), CVA tenderness (R) - Neurological Exam Neurological exam: Alert, Oriented x3 - Psychiatric Exam Psychiatric exam: Normal Affect, Normal Mood - Skin Skin Exam: Dry, Intact, Normal Color, Warm Assessment and Plan - Assessment and Plan (Free Text) Assessment: 52 yo F with pmhx of diverticulitis s/p hemicolectomy and fistula in '05, HTN, ectopic , COPD, who presents for 2 day hx of abd pain. CT abd/pelvis showed diverticulitis without evidence of abscess or free air. Plan: Diverticulitis: - CT abd/Pelvis showed diverticulitis without abscess or free air, severe mural thickening and inflammation - MRI abd/pelvis 06/15 to evaluate descending colon lesion: Severe mural thickening and associated inflammatory changes involving the left colon identified on CT performed 06/13/18 incompletely imaged on this MRI of the pelvis. Inflammatory changes are evident involving the included portions of the left colon at the superior margin of this examination. Bowel anastomosis with the lower pelvis. The appendix is not identified consistent with appendectomy. Please note that malignant neoplasm of the colon cannot be excluded on the basis of a noncontrast MRI of the abdomen or pelvis. Recommend further evaluation with colonoscopy if clinically indicated if this is of clinical concern. 3.8 cm right ovarian cyst. Recommend pelvic ultrasound for further evaluation. Mild pelvic free fluid. - Rocephin 1gm IV qd - Flagyl 500 TID - CLD per surgery recommendations, advance as tolerated - NS @ 100/hr - morphine 2 q4 IVP - Protonix 40 IVP - Zofran 4 mg q6 - GI consulted - Dr. Nunez - may advance to soft diet if tolerating diet. Consider o/p colonoscopy in 6-8 weeks - Surgery Consulted - Dr. 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 Calvillo. Roderick Velazquez, PGY-1 <David Calvillo - Last Filed: 06/16/18 18:34> Objective - Vital Signs/Intake and Output Vital Signs (last 24 hours): Temp Pulse Resp BP Pulse Ox 98 F 80 16 120/83 100 06/16/18 14:00 06/16/18 14:00 06/16/18 14:00 06/16/18 14:00 06/16/18 14:00 Intake and Output: 06/16/18 06/16/18 06:59 18:59 Intake Total 180 Balance 180 - Medications Medications: Current Medications Acetaminophen (Tylenol 325mg Tab) 650 mg PO Q6H PRN PRN Reason: Headache Last Admin: 06/14/18 17:43 Dose: 650 mg Albuterol/Ipratropium (Duoneb 3 Mg/0.5 Mg (3 Ml) Ud) 3 ml IH [id number] PRN PRN Reason: Shortness of Breath Ceftriaxone Sodium (Rocephin 1 Gram Ivpb) 1 gm in 100 mls @ 100 mls/hr IVPB DAILY RADHA; Protocol Last Admin: 06/16/18 10:28 Dose: 100 mls/hr Metronidazole (Flagyl) 500 mg PO Q8 RADHA Morphine Sulfate (Morphine) 2 mg IVP Q4H PRN PRN Reason: Pain, moderate (4-7) Last Admin: 06/15/18 10:19 Dose: 2 mg Nicotine (Nicoderm Cq) 1 patch TD DAILY RADHA Last Admin: 06/16/18 10:28 Dose: Not Given Ondansetron HCl (Zofran Inj) 4 mg IVP Q6H PRN PRN Reason: Nausea/Vomiting Pantoprazole Sodium (Protonix Ec Tab) 40 mg PO ACB RADHA - Labs Labs: 06/16/18 06:45 06/16/18 06:45 PT 15.0 SECONDS (9.4-12.5) H 06/13/18 12:30 INR 1.30 06/13/18 12:30 APTT 28.3 Seconds (25.1-36.5) 06/13/18 12:30 Attending/Attestation - Attestation I have personally seen and examined this patient.: Yes I have fully participated in the care of the patient.: Yes I have reviewed all pertinent clinical information, including history, physical exam and plan: Yes Notes (Text): Diverticulitis HTN COPD Hypokalemia Pt continues to complain of abdominal pain, will c/w pain meds and attempt clear liquid diet CT abd showed mural thickening with inflammatory changes in the left colon. GI recommends MRI c/w antibiotics GI and surgery on board. No intervention at this time Pt may need outpt colonoscopy Monitor and replace electrolytes DuoNebs PRN
--- NOTE | 2018-06-15 18:59 | MRI ---
MRI pelvis without IV contrast Indication: eval dec. colon lesion Technique: Multiplanar, multi sequence magnetic resonance images of the pelvis were obtained without the administration of intravenous gadolinium. A total of 285 images submitted for review Comparison: CT of the abdomen pelvis with IV contrast performed 06/13/18 Findings: Severe mural thickening and associated inflammatory changes involving the left colon identified on CT performed 06/13/18 incompletely imaged on this MRI of the pelvis. Inflammatory changes are evident involving the included portions of the left colon at the superior margin of this examination. Bowel anastomosis with the lower pelvis. The appendix is not identified consistent with appendectomy. Uterus is present. 3.8 cm right ovarian cyst. Minimal pelvic free fluid. Urinary bladder appears grossly unremarkable. Degenerative changes of the osseous structures. Tarlov cyst. Mild posterior disc bulge at L5-S1. Impression: Severe mural thickening and associated inflammatory changes involving the left colon identified on CT performed 06/13/18 incompletely imaged on this MRI of the pelvis. Inflammatory changes are evident involving the included portions of the left colon at the superior margin of this examination. Bowel anastomosis with the lower pelvis. The appendix is not identified consistent with appendectomy. Please note that malignant neoplasm of the colon cannot be excluded on the basis of a noncontrast MRI of the abdomen or pelvis. Recommend further evaluation with colonoscopy if clinically indicated if this is of clinical concern. 3.8 cm right ovarian cyst. Recommend pelvic ultrasound for further evaluation. Mild pelvic free fluid. Case discussed with the patient's BARBRA Malcolm on 06/15/18 at 6:50 p.m.
[2018-06-15] MEDS: Lactated Ringer's 1,000 ML IV SCH (21:06)
[2018-06-15] MEDS ORDERED: DiphenhydrAMINE 50 mg/ml Inj IVP STA (23:16)
[2018-06-16] MEDS: Lactated Ringer's 1,000 ML IV SCH (05:42)
[2018-06-16] MEDS: metroNIDAZOLE IV 500 mg/100 ml 500 MG/100 ML BAG IVPB SCH ×2 (06:14→14:31)
[2018-06-16 07:14] LABS: BASO # 0.03 K/mm3 (0.0-2.0); BASO % 0.5 % (0.0-3.0); EOS # 0.1 (0.0-0.7); EOS % 2.6 % (1.5-5.0); GRAN # 3.92 (1.4-6.5); GRAN % 71.7 % (50.0-68.0); HEMOGLOBIN 13.3 g/dL (12.0-16.0); LYMPH # 1.1 (1.2-3.4); LYMPH % 19.9 % (22.0-35.0); MEAN CELL VOLUME 89.4 fl (80.0-105.0); MEAN CORPUSCULAR HEMOGLOBIN 30.7 pg (25.0-35.0); MEAN CORPUSCULAR HGB CONC 34.4 g/dl (31.0-37.0); MONO # 0.3 (0.1-0.6); MONO % 5.3 % (1.0-6.0); RBC 4.33 10^6/uL (3.5-6.1); RED CELL DISTRIBUTION WIDTH 13.6 % (11.5-14.5); WHITE BLOOD COUNT 5.5 10^3/uL (4.5-11.0)
[2018-06-16 07:38] LABS: ALB/GLOB RATIO 1.2 (1.1-1.8); ALBUMIN 3.5 g/dL (3.0-4.8); ALT/SGPT 31 U/L (7-56); AST/SGOT 23 U/L (14-36); BLOOD UREA NITROGEN 10 mg/dL (7-21); CALCIUM 8.8 mg/dL (8.4-10.5); GFR NON-AFRICAN AMERICAN > 60
[2018-06-16] MEDS: cefTRIAXone 1 gm 1 GM/100 ML BAG IVPB SCH (10:28)
--- NOTE | 2018-06-16 11:18 | CP.PCM.PN ---
Subjective - Date & Time of Evaluation Date of Evaluation: 06/16/18 Time of Evaluation: 11:18 - Subjective Subjective: PGY-[address] Eastman Patient seen and examined at bedside. No acute events overnight per nursing. Patient is tolerating solid foods. She states her abdominal pain is much improved today. Patient denies nausea, vomiting, chest pain, headache, dizziness. Objective - Vital Signs/Intake and Output Vital Signs (last 24 hours): Temp Pulse Resp BP Pulse Ox 97.8 F 65 20 121/79 93 L 06/16/18 06:00 06/16/18 06:00 06/16/18 06:00 06/16/18 06:00 06/16/18 06:00 Intake and Output: 06/16/18 06/16/18 06:59 18:59 Intake Total 180 Balance 180 - Medications Medications: Current Medications Acetaminophen (Tylenol 325mg Tab) 650 mg PO Q6H PRN PRN Reason: Headache Last Admin: 06/14/18 17:43 Dose: 650 mg Albuterol/Ipratropium (Duoneb 3 Mg/0.5 Mg (3 Ml) Ud) 3 ml IH [id number] PRN PRN Reason: Shortness of Breath Metronidazole (Flagyl) 500 mg in 100 mls @ 100 mls/hr IVPB Q8 RADHA; Protocol Last Admin: 06/16/18 06:14 Dose: 100 mls/hr Ceftriaxone Sodium (Rocephin 1 Gram Ivpb) 1 gm in 100 mls @ 100 mls/hr IVPB DAILY RADHA; Protocol Last Admin: 06/16/18 10:28 Dose: 100 mls/hr Lactated Ringer's (Lactated Ringer's) 1,000 mls @ 100 mls/hr IV .Q10H RADHA Last Admin: 06/16/18 05:42 Dose: Not Given Morphine Sulfate (Morphine) 2 mg IVP Q4H PRN PRN Reason: Pain, moderate (4-7) Last Admin: 06/15/18 10:19 Dose: 2 mg Nicotine (Nicoderm Cq) 1 patch TD DAILY RADHA Last Admin: 06/16/18 10:28 Dose: Not Given Ondansetron HCl (Zofran Inj) 4 mg IVP Q6H PRN PRN Reason: Nausea/Vomiting Pantoprazole Sodium (Protonix Inj) 40 mg IVP DAILY RADHA Last Admin: 06/16/18 10:30 Dose: 40 mg - Labs Labs: 06/16/18 06:45 06/16/18 06:45 PT 15.0 SECONDS (9.4-12.5) H 06/13/18 12:30 INR 1.30 06/13/18 12:30 APTT 28.3 Seconds (25.1-36.5) 06/13/18 12:30 - Constitutional Appears: Non-toxic, No Acute Distress - Head Exam Head Exam: ATRAUMATIC, NORMAL INSPECTION - Eye Exam Eye Exam: EOMI, Normal appearance - ENT Exam ENT Exam: Mucous Membranes Moist - Respiratory Exam Respiratory Exam: Clear to Ausculation Bilateral, NORMAL BREATHING PATTERN. absent: Rales, Rhonchi, Wheezes - Cardiovascular Exam Cardiovascular Exam: REGULAR RHYTHM, +S1, +S2 - GI/Abdominal Exam GI & Abdominal Exam: Soft, Tenderness (Mild LLQ tenderness, much improved), Normal Bowel Sounds - Extremities Exam Extremities Exam: Normal Inspection. absent: Pedal Edema, Tenderness - Neurological Exam Neurological Exam: Alert, Awake, CN II-XII Intact, Oriented x3 - Psychiatric Exam Psychiatric exam: Normal Affect, Normal Mood - Skin Skin Exam: Dry, Intact, Normal Color, Warm Assessment and Plan - Assessment and Plan (Free Text) Assessment: 51 year old female with PMHx diverticulitis s/p hemicolectomy 2004 presents with abdominal pain and diverticulitis of descending colon on CT Plan: Patient tolerating PO diet Clinically patient has significantly improved, her abdominal pain is greatly improved from yesterday No further surgical intervention indicated at this time Patient is cleared for discharged from a surgical perspective Patient should continue PO antibiotics for at least 10-14 days Per GI, patient should follow up with GI for outpatient colonoscopy in 6-8 weeks John Zavaleta, PGY-1
--- NOTE | 2018-06-16 15:30 | CP.PCM.PN ---
<Darrell Weinstein - Last Filed: 06/16/18 19:50> Subjective - Date & Time of Evaluation Date of Evaluation: 06/16/18 Time of Evaluation: 10:45 - Subjective Subjective: PGY6 GI Fellow Progress Note Patient seen and examined bedside this morning. The patient states she continues to have LLQ abdominal pain, worsened with defecation. Tolerating diet Objective - Vital Signs/Intake and Output Vital Signs (last 24 hours): Temp Pulse Resp BP Pulse Ox 98 F 80 16 120/83 100 06/16/18 14:00 06/16/18 14:00 06/16/18 14:00 06/16/18 14:00 06/16/18 14:00 Intake and Output: 06/16/18 06/16/18 06:59 18:59 Intake Total 180 Balance 180 - Medications Medications: Current Medications Acetaminophen (Tylenol 325mg Tab) 650 mg PO Q6H PRN PRN Reason: Headache Last Admin: 06/14/18 17:43 Dose: 650 mg Albuterol/Ipratropium (Duoneb 3 Mg/0.5 Mg (3 Ml) Ud) 3 ml IH [id number] PRN PRN Reason: Shortness of Breath Ceftriaxone Sodium (Rocephin 1 Gram Ivpb) 1 gm in 100 mls @ 100 mls/hr IVPB DAILY RADHA; Protocol Last Admin: 06/16/18 10:28 Dose: 100 mls/hr Metronidazole (Flagyl) 500 mg PO Q8 RADHA Morphine Sulfate (Morphine) 2 mg IVP Q4H PRN PRN Reason: Pain, moderate (4-7) Last Admin: 06/15/18 10:19 Dose: 2 mg Nicotine (Nicoderm Cq) 1 patch TD DAILY RADHA Last Admin: 06/16/18 10:28 Dose: Not Given Ondansetron HCl (Zofran Inj) 4 mg IVP Q6H PRN PRN Reason: Nausea/Vomiting Pantoprazole Sodium (Protonix Ec Tab) 40 mg PO ACB RADHA - Labs Labs: 06/16/18 06:45 06/16/18 06:45 PT 15.0 SECONDS (9.4-12.5) H 06/13/18 12:30 INR 1.30 06/13/18 12:30 APTT 28.3 Seconds (25.1-36.5) 06/13/18 12:30 - Constitutional Appears: Non-toxic, No Acute Distress - Eye Exam Eye Exam: EOMI, PERRL - ENT Exam ENT Exam: Mucous Membranes Moist - Respiratory Exam Respiratory Exam: Clear to Ausculation Bilateral. absent: Rales, Rhonchi, Wheezes - Cardiovascular Exam Cardiovascular Exam: RRR, +S1, +S2 - GI/Abdominal Exam GI & Abdominal Exam: Guarding, Soft, Tenderness (LLQ), Normal Bowel Sounds. absent: Distended, Firm, Rigid, Organomegaly - Extremities Exam Extremities Exam: Normal Inspection. absent: Pedal Edema - Neurological Exam Neurological Exam: Alert, Awake, Oriented x3 - Psychiatric Exam Psychiatric exam: Normal Affect, Normal Mood - Skin Skin Exam: Dry, Warm Assessment and Plan - Assessment and Plan (Free Text) Assessment: Patient is a 52yo female with PMHx significant for complicated diverticulitis with colovaginal fistula formation and subsequent sigmoidectomy and repair, HTN, ectopic , COPD who presented to the ED with complaint of left lower quadrant abdominal pain -Left lower quadrant abdominal pain with concern for acute diverticulitis Plan: -Patient remains with significant tenderness in the LLQ though improved clinica lly from yesterday -Had rash following Flagyl administration, thus regimen will need to be modified -MRI reviewed - significant inflammation in distal descending colon -Maintain on soft diet -Patient would benefit from colonoscopy 6-8 weeks from resolution of acute event -Pain control per primary team <Steve Nunez V - Last Filed: 06/16/18 23:42> Objective - Vital Signs/Intake and Output Vital Signs (last 24 hours): Temp Pulse Resp BP Pulse Ox 98.3 F 84 18 134/90 98 06/16/18 21:58 06/16/18 21:58 06/16/18 21:58 06/16/18 21:58 06/16/18 21:58 - Medications Medications: Current Medications Acetaminophen (Tylenol 325mg Tab) 650 mg PO Q6H PRN PRN Reason: Headache Last Admin: 06/14/18 17:43 Dose: 650 mg Albuterol/Ipratropium (Duoneb 3 Mg/0.5 Mg (3 Ml) Ud) 3 ml IH [id number] PRN PRN Reason: Shortness of Breath Ceftriaxone Sodium (Rocephin 1 Gram Ivpb) 1 gm in 100 mls @ 100 mls/hr IVPB DAILY RADHA; Protocol Last Admin: 06/16/18 10:28 Dose: 100 mls/hr Metronidazole (Flagyl) 500 mg PO Q8 RADHA Morphine Sulfate (Morphine) 2 mg IVP Q4H PRN PRN Reason: Pain, moderate (4-7) Last Admin: 06/15/18 10:19 Dose: 2 mg Nicotine (Nicoderm Cq) 1 patch TD DAILY RADHA Last Admin: 06/16/18 10:28 Dose: Not Given Ondansetron HCl (Zofran Inj) 4 mg IVP Q6H PRN PRN Reason: Nausea/Vomiting Pantoprazole Sodium (Protonix Ec Tab) 40 mg PO ACB RADHA - Labs Labs: 06/16/18 06:45 06/16/18 06:45 PT 15.0 SECONDS (9.4-12.5) H 06/13/18 12:30 INR 1.30 06/13/18 12:30 APTT 28.3 Seconds (25.1-36.5) 06/13/18 12:30 Attending/Attestation - Attestation I have personally seen and examined this patient.: Yes I have fully participated in the care of the patient.: Yes I have reviewed all pertinent clinical information, including history, physical exam and plan: Yes Notes (Text): p 06/16/18 23:41
--- NOTE | 2018-06-16 16:51 | CP.PCM.PN ---
<Roderick Velazquez - Last Filed: 06/16/18 16:48> Subjective - Date & Time of Evaluation Date of Evaluation: 06/16/18 Time of Evaluation: 09:00 - Subjective Subjective: Roderick Velazquez PGY-1 Progress Note for Hospitalist Service Patient seen and evaluated at bedside. No acute events reported overnight. Patient reports abdominal pain in LLQ has improved slightly. Denies fevers, chills, nausea, vomiting, distension, chest pain, palpitations, shortness of breath. Patient reports tolerating diet. Objective - Vital Signs/Intake and Output Vital Signs (last 24 hours): Temp Pulse Resp BP Pulse Ox 98 F 80 16 120/83 100 06/16/18 14:00 06/16/18 14:00 06/16/18 14:00 06/16/18 14:00 06/16/18 14:00 Intake and Output: 06/16/18 06/16/18 06:59 18:59 Intake Total 180 Balance 180 - Medications Medications: Current Medications Acetaminophen (Tylenol 325mg Tab) 650 mg PO Q6H PRN PRN Reason: Headache Last Admin: 06/14/18 17:43 Dose: 650 mg Albuterol/Ipratropium (Duoneb 3 Mg/0.5 Mg (3 Ml) Ud) 3 ml IH [id number] PRN PRN Reason: Shortness of Breath Ceftriaxone Sodium (Rocephin 1 Gram Ivpb) 1 gm in 100 mls @ 100 mls/hr IVPB DAILY RADHA; Protocol Last Admin: 06/16/18 10:28 Dose: 100 mls/hr Metronidazole (Flagyl) 500 mg PO Q8 RADHA Morphine Sulfate (Morphine) 2 mg IVP Q4H PRN PRN Reason: Pain, moderate (4-7) Last Admin: 06/15/18 10:19 Dose: 2 mg Nicotine (Nicoderm Cq) 1 patch TD DAILY RADHA Last Admin: 06/16/18 10:28 Dose: Not Given Ondansetron HCl (Zofran Inj) 4 mg IVP Q6H PRN PRN Reason: Nausea/Vomiting Pantoprazole Sodium (Protonix Ec Tab) 40 mg PO ACB RADHA - Labs Labs: 06/16/18 06:45 06/16/18 06:45 PT 15.0 SECONDS (9.4-12.5) H 06/13/18 12:30 INR 1.30 06/13/18 12:30 APTT 28.3 Seconds (25.1-36.5) 06/13/18 12:30 - Additional Findings Additional findings: - Constitutional Appears: Non-toxic, No Acute Distress - Head Exam Head Exam: ATRAUMATIC, NORMAL INSPECTION, NORMOCEPHALIC - Eye Exam Eye Exam: EOMI, Normal appearance, PERRL - Respiratory Exam Respiratory Exam: Clear to Auscultation Bilateral, NORMAL BREATHING PATTERN. absent: Accessory Muscle Use, Decreased Breath Sounds, Rales, Rhonchi, Wheezes, Respiratory Distress, Stridor - Cardiovascular Exam Cardiovascular Exam: RRR, +S1, +S2. absent: Diastolic murmur, Gallop, Rubs - GI/Abdominal Exam GI & Abdominal Exam: Guarding LLQ, Normal Bowel Sounds, Soft, Tenderness ( Present in LLQ). absent: Rigid - Extremities Exam Extremities exam: Positive for: full ROM, normal capillary refill, normal inspection, pedal pulses present. Negative for: calf tenderness, pedal edema - Back Exam Back exam: NORMAL INSPECTION. absent: CVA tenderness (L), CVA tenderness (R) - Neurological Exam Neurological exam: Alert, Oriented x3 - Psychiatric Exam Psychiatric exam: Normal Affect, Normal Mood - Skin Skin Exam: Dry, Intact, Normal Color, Warm, nonpruritic nonerythematous subepidermal raised rash on arms and abdomen Assessment and Plan - Assessment and Plan (Free Text) Assessment: 52 yo F with pmhx of diverticulitis s/p hemicolectomy and fistula in '05, HTN, ectopic , COPD, who presents for 2 day hx of abd pain. CT abd/pelvis showed diverticulitis without evidence of abscess or free air. Patient reported nonpruritic rash after Flagyl infusion last night. Benadryl given. Flagyl on hold pending ID choice of ABx. Plan: Diverticulitis: - CT abd/Pelvis showed diverticulitis without abscess or free air, severe mural thickening and inflammation - MRI abd/pelvis 06/15 to evaluate descending colon lesion: Severe mural thickening and associated inflammatory changes involving the left colon identified on CT performed 06/13/18 incompletely imaged on this MRI of the pelvis. Inflammatory changes are evident involving the included portions of the left colon at the superior margin of this examination. Bowel anastomosis with the lower pelvis. The appendix is not identified consistent with appendectomy. Please note that malignant neoplasm of the colon cannot be excluded on the basis of a noncontrast MRI of the abdomen or pelvis. Recommend further evaluation with colonoscopy if clinically indicated if this is of clinical concern. 3.8 cm right ovarian cyst. Recommend pelvic ultrasound for further evaluation. Mild pelvic free fluid. - Rocephin 1gm IV qd, Flagyl 500 TID on hold - Soft regular diet, advance in AM if tolerated - morphine 2 q4 IVP - Protonix 40 IVP - Zofran 4 mg q6 - GI consulted - Dr. Nunez - may advance to soft diet if tolerating diet. Consider o/p colonoscopy in 6-8 weeks - Surgery Consulted - Dr. Smalls - PO ABx for 10-14 days, o/p colonoscopy in 6-8 weeks. Cleared for DC - Patient reported nonpruritic rash after Flagyl infusion last night. Benadryl given. Flagyl on hold pending new regimen per ID. Documented allergy to Levaquin. - ID - Dr. Olea - recs appreciated. Headache - intermittent bilateral headache, no associated N/V or blurry vision - Tylenol 650 mg q6h - continue to monitor clinically and LFTs Hypokalemia: - Repleted, f/u in AM labs Hx of HTN: - Pt states that absence management consultant recommended to d/c BP meds - Will continue to monitor Hx of COPD: - Duonebs Q4 PRN - Counseled pt to stop smoking Hx of tobacco abuse: - Nicotine patch PPX: GI: Protonix IV DVT: SCDs Dispo: Sent form to release records from [facility] [place] from previous record. Discharge planning pending diet tolerance and PO ABx Patient seen, case reviewed and plan approved by Dr. Calvillo. Roderick Velazquez, PGY-1 <David Calvillo - Last Filed: 06/16/18 18:36> Objective - Vital Signs/Intake and Output Vital Signs (last 24 hours): Temp Pulse Resp BP Pulse Ox 98 F 80 16 120/83 100 06/16/18 14:00 06/16/18 14:00 06/16/18 14:00 06/16/18 14:00 06/16/18 14:00 Intake and Output: 06/16/18 06/16/18 06:59 18:59 Intake Total 180 Balance 180 - Medications Medications: Current Medications Acetaminophen (Tylenol 325mg Tab) 650 mg PO Q6H PRN PRN Reason: Headache Last Admin: 06/14/18 17:43 Dose: 650 mg Albuterol/Ipratropium (Duoneb 3 Mg/0.5 Mg (3 Ml) Ud) 3 ml IH [id number] PRN PRN Reason: Shortness of Breath Ceftriaxone Sodium (Rocephin 1 Gram Ivpb) 1 gm in 100 mls @ 100 mls/hr IVPB DAILY RADHA; Protocol Last Admin: 06/16/18 10:28 Dose: 100 mls/hr Metronidazole (Flagyl) 500 mg PO Q8 RADHA Morphine Sulfate (Morphine) 2 mg IVP Q4H PRN PRN Reason: Pain, moderate (4-7) Last Admin: 06/15/18 10:19 Dose: 2 mg Nicotine (Nicoderm Cq) 1 patch TD DAILY RADHA Last Admin: 06/16/18 10:28 Dose: Not Given Ondansetron HCl (Zofran Inj) 4 mg IVP Q6H PRN PRN Reason: Nausea/Vomiting Pantoprazole Sodium (Protonix Ec Tab) 40 mg PO ACB RADHA - Labs Labs: 06/16/18 06:45 06/16/18 06:45 PT 15.0 SECONDS (9.4-12.5) H 06/13/18 12:30 INR 1.30 06/13/18 12:30 APTT 28.3 Seconds (25.1-36.5) 06/13/18 12:30 Attending/Attestation - Attestation I have personally seen and examined this patient.: Yes I have fully participated in the care of the patient.: Yes I have reviewed all pertinent clinical information, including history, physical exam and plan: Yes Notes (Text): Diverticulitis HTN COPD Hypokalemia Improvement in abdominal pain. Will advance diet today. MRI findings suggestive of left colonic inflammatory changes c/w antibiotics GI and surgery on board. No intervention at this time Pt may need outpt colonoscopy Monitor and replace electrolytes DuoNebs PRN
[2018-06-17 06:30] LABS: BASO # 0.01 K/mm3 (0.0-2.0); BASO % 0.1 % (0.0-3.0); EOS # 0.3 (0.0-0.7); EOS % 3.4 % (1.5-5.0); GRAN # 6.05 (1.4-6.5); GRAN % 78.5 % (50.0-68.0); HEMOGLOBIN 13.8 g/dL (12.0-16.0); LYMPH # 1.1 (1.2-3.4); LYMPH % 13.8 % (22.0-35.0); MEAN CELL VOLUME 89.7 fl (80.0-105.0); MEAN CORPUSCULAR HEMOGLOBIN 30.8 pg (25.0-35.0); MEAN CORPUSCULAR HGB CONC 34.3 g/dl (31.0-37.0); MEAN PLATELET VOLUME 10.1 fl (7.0-11.0); MONO # 0.3 (0.1-0.6); MONO % 4.2 % (1.0-6.0); RBC 4.48 10^6/uL (3.5-6.1); RED CELL DISTRIBUTION WIDTH 13.7 % (11.5-14.5); WHITE BLOOD COUNT 7.7 10^3/uL (4.5-11.0)
[2018-06-17 07:04] LABS: ALB/GLOB RATIO 1.3 (1.1-1.8); ALBUMIN 3.5 g/dL (3.0-4.8); ALT/SGPT 30 U/L (7-56); AST/SGOT 21 U/L (14-36); BLOOD UREA NITROGEN 19 mg/dL (7-21); CALCIUM 8.8 mg/dL (8.4-10.5); GFR NON-AFRICAN AMERICAN > 60
[2018-06-17] MEDS ORDERED: Potassium Chloride 20 mEq ER Tab PO STA (07:28)
[2018-06-17] MEDS ORDERED: Pantoprazole 40 mg EC Tab PO SCH (07:30)
[2018-06-17 07:42] VITALS: BP 121/86; PULSE 78; RESP 20; TEMP 97.9; O2SAT 92
[2018-06-17] MEDS: cefTRIAXone 1 gm 1 GM/100 ML BAG IVPB SCH (09:43)
[2018-06-17] MEDS ORDERED: Clindamycin 600mg/50ml D5W 600 MG/50 ML VIAL IVPB SCH (11:45)
--- NOTE | 2018-06-17 13:12 | CP.PCM.PN ---
<Darrell Weinstein - Last Filed: 06/17/18 13:12> Subjective - Date & Time of Evaluation Date of Evaluation: 06/17/18 Time of Evaluation: 10:00 - Subjective Subjective: PGY6 GI Fellow Progress Note Patient seen and examined bedside this morning. The patient states that she is feeling better today and has no complaints presently. Eager to return home. 12 system ROS performed and negative except where stated Objective - Vital Signs/Intake and Output Vital Signs (last 24 hours): Temp Pulse Resp BP Pulse Ox 97.9 F 78 20 121/86 92 L 06/17/18 06:00 06/17/18 06:00 06/17/18 06:00 06/17/18 06:00 06/17/18 06:00 Intake and Output: 06/17/18 06/17/18 06:59 18:59 Intake Total 180 Balance 180 - Medications Medications: Current Medications Acetaminophen (Tylenol 325mg Tab) 650 mg PO Q6H PRN PRN Reason: Headache Last Admin: 06/14/18 17:43 Dose: 650 mg Albuterol/Ipratropium (Duoneb 3 Mg/0.5 Mg (3 Ml) Ud) 3 ml IH [id number] PRN PRN Reason: Shortness of Breath Aztreonam (Azactam 1 Gm) 100 mls @ 100 mls/hr IVPB Q8 RADHA; Protocol Stop: 06/23/18 14:01 Clindamycin Phosphate (Cleocin) 600 mg in 50 mls @ 50 mls/hr IVPB Q8H RADHA; Protocol Stop: 06/26/18 11:46 Morphine Sulfate (Morphine) 2 mg IVP Q4H PRN PRN Reason: Pain, moderate (4-7) Last Admin: 06/15/18 10:19 Dose: 2 mg Nicotine (Nicoderm Cq) 1 patch TD DAILY RADHA Last Admin: 06/16/18 10:28 Dose: Not Given Ondansetron HCl (Zofran Inj) 4 mg IVP Q6H PRN PRN Reason: Nausea/Vomiting Pantoprazole Sodium (Protonix Ec Tab) 40 mg PO ACB RADHA Last Admin: 06/17/18 09:42 Dose: 40 mg - Labs Labs: 06/17/18 05:30 06/17/18 05:30 PT 15.0 SECONDS (9.4-12.5) H 06/13/18 12:30 INR 1.30 06/13/18 12:30 APTT 28.3 Seconds (25.1-36.5) 06/13/18 12:30 - Constitutional Appears: Non-toxic, No Acute Distress - Eye Exam Eye Exam: EOMI, PERRL - ENT Exam ENT Exam: Mucous Membranes Moist - Respiratory Exam Respiratory Exam: Clear to Ausculation Bilateral. absent: Rales, Rhonchi, Wheezes - Cardiovascular Exam Cardiovascular Exam: RRR, +S1, +S2 - GI/Abdominal Exam GI & Abdominal Exam: Soft, Normal Bowel Sounds. absent: Distended, Firm, Guarding, Rigid, Tenderness, Organomegaly - Extremities Exam Extremities Exam: Normal Inspection. absent: Pedal Edema - Neurological Exam Neurological Exam: Alert, Awake, Oriented x3 - Psychiatric Exam Psychiatric exam: Normal Affect, Normal Mood - Skin Skin Exam: Dry, Warm Assessment and Plan - Assessment and Plan (Free Text) Assessment: Patient is a 52yo female with PMHx significant for complicated diverticulitis with colovaginal fistula formation and subsequent sigmoidectomy and repair, HTN, ectopic , COPD who presented to the ED with complaint of left lower quadrant abdominal pain -Left lower quadrant abdominal pain - acute diverticulitis Plan: -Pain improved today, tolerating diet without issue -Complete 10 day antibiotic course as outpatient -Patient will benefit from colonoscopy 6-8 weeks from resolution of acute event -OK to D/C from GI standpoint with outpatient MEDICAL CLERK (may require TVUS) and GI follow up - patient verbalized understanding <Steve Nunez V - Last Filed: 06/18/18 00:11> Objective - Vital Signs/Intake and Output Vital Signs (last 24 hours): Temp Pulse Resp BP Pulse Ox 97.9 F 78 20 121/86 92 L 06/17/18 06:00 06/17/18 06:00 06/17/18 06:00 06/17/18 06:00 06/17/18 06:00 - Labs Labs: 06/17/18 05:30 06/17/18 05:30 PT 15.0 SECONDS (9.4-12.5) H 06/13/18 12:30 INR 1.30 06/13/18 12:30 APTT 28.3 Seconds (25.1-36.5) 06/13/18 12:30 Attending/Attestation - Attestation I have personally seen and examined this patient.: Yes I have fully participated in the care of the patient.: Yes I have reviewed all pertinent clinical information, including history, physical exam and plan: Yes
[2018-06-17] MEDS ORDERED: Aztreonam 1 Gm in NS 100mL 100 ML IVPB SCH (14:00)
--- NOTE | 2018-06-17 16:15 | CP.PCM.DIS ---
<Roderick Velazquez - Last Filed: 06/17/18 16:12> Provider - Provider Date of Admission: 06/13/18 15:52 Attending physician: Lorie Browne MD Primary care physician: Mert Duarte MD Consults: 06/13/18 17:01 Gastroenterology Consult Routine Comment: Consulting Provider: Steve Nunez V Consulting Physician: Steve Nunez V Reason for Consult: Diverticulitis General Surgery Consult Routine Comment: Consulting Provider: Lucas Eastman Consulting Physician: Lucas Eastman Reason for Consult: Diverticulitis w/ hx of hemicolectomy 06/16/18 13:08 Infectious Disease Consult Routine Comment: Consulting Provider: Shade Olea Consulting Physician: Shade Olea Reason for Consult: PO antibiotic coverage, allergies to levaquin and ? flagyl Time Spent in preparation of Discharge (in minutes): 40 Hospital Course - Lab Results Lab Results: Micro Results 06/13/18 15:15 Blood Blood Culture - Preliminary NO GROWTH AFTER 4 DAYS 06/13/18 12:40 Blood Blood Culture - Preliminary NO GROWTH AFTER 4 DAYS 06/13/18 12:15 Urine Urine Culture - Final 10-50,000 CFU/ML. MULTIPLE SPECIES. PROBABLE CONTAMINATION. Most Recent Lab Values WBC 7.7 10^3/uL (4.5-11.0) D 06/17/18 05:30 RBC 4.48 10^6/uL (3.5-6.1) 06/17/18 05:30 Hgb 13.8 g/dL (12.0-16.0) 06/17/18 05:30 Hct 40.2 % (36.0-48.0) 06/17/18 05:30 MCV 89.7 fl (80.0-105.0) 06/17/18 05:30 MCH 30.8 pg (25.0-35.0) 06/17/18 05:30 MCHC 34.3 g/dl (31.0-37.0) 06/17/18 05:30 RDW 13.7 % (11.5-14.5) 06/17/18 05:30 Plt Count 239 10^3/uL (120.0-450.0) 06/17/18 05:30 MPV 10.1 fl (7.0-11.0) 06/17/18 05:30 Gran % 78.5 % (50.0-68.0) H 06/17/18 05:30 Lymph % (Auto) 13.8 % (22.0-35.0) L 06/17/18 05:30 Brooks % (Auto) 4.2 % (1.0-6.0) 06/17/18 05:30 Eos % (Auto) 3.4 % (1.5-5.0) 06/17/18 05:30 Baso % (Auto) 0.1 % (0.0-3.0) 06/17/18 05:30 Gran # 6.05 (1.4-6.5) 06/17/18 05:30 Lymph # (Auto) 1.1 (1.2-3.4) L 06/17/18 05:30 Brooks # (Auto) 0.3 (0.1-0.6) 06/17/18 05:30 Eos # (Auto) 0.3 (0.0-0.7) 06/17/18 05:30 Baso # (Auto) 0.01 K/mm3 (0.0-2.0) 06/17/18 05:30 PT 15.0 SECONDS (9.4-12.5) H 06/13/18 12:30 INR 1.30 06/13/18 12:30 APTT 28.3 Seconds (25.1-36.5) 06/13/18 12:30 Sodium 139 mmol/L (132-148) 06/17/18 05:30 Potassium 3.5 mmol/L (3.6-5.0) L 06/17/18 05:30 Chloride 105 mmol/L (98-107) 06/17/18 05:30 Carbon Dioxide 28 mmol/L (21-33) 06/17/18 05:30 Anion Gap 9 (10-20) L 06/17/18 05:30 BUN 19 mg/dL (7-21) 06/17/18 05:30 Creatinine 0.8 mg/dl (0.7-1.2) 06/17/18 05:30 Est GFR ( Amer) > 60 06/17/18 05:30 Est GFR (Non-Af Amer) > 60 06/17/18 05:30 Random Glucose 112 mg/dL (70-110) H 06/17/18 05:30 Calcium 8.8 mg/dL (8.4-10.5) 06/17/18 05:30 Magnesium 1.8 mg/dL (1.7-2.2) 06/13/18 12:30 Total Bilirubin 0.6 mg/dL (0.2-1.3) 06/17/18 05:30 AST 21 U/L (14-36) 06/17/18 05:30 ALT 30 U/L (7-56) 06/17/18 05:30 Alkaline Phosphatase 61 U/L (38-126) 06/17/18 05:30 Total Protein 6.2 g/dL (5.8-8.3) 06/17/18 05:30 Albumin 3.5 g/dL (3.0-4.8) 06/17/18 05:30 Globulin 2.7 gm/dL 06/17/18 05:30 Albumin/Globulin Ratio 1.3 (1.1-1.8) 06/17/18 05:30 Lipase 26 U/L (23-300) 06/13/18 12:30 Urine Color Yellow (YELLOW) 06/13/18 12:15 Urine Appearance Cloudy (CLEAR) 06/13/18 12:15 Urine pH 6.0 (4.7-8.0) 06/13/18 12:15 Ur Specific [place] >= 1.030 (1.005-1.035) 06/13/18 12:15 Urine Protein >=300 mg/dL (<30 mg/dL) H 06/13/18 12:15 Urine Glucose (UA) Negative mg/dL (NEGATIVE) 06/13/18 12:15 Urine Ketones Trace mg/dL (NEGATIVE) H 06/13/18 12:15 Urine Blood Large (NEGATIVE) H 06/13/18 12:15 Urine Nitrate Negative (NEGATIVE) 06/13/18 12:15 Urine Bilirubin Small (NEGATIVE) H 06/13/18 12:15 Urine Urobilinogen 0.2 E.U./dL (<1 E.U./dL) 06/13/18 12:15 Ur Leukocyte Esterase Trace Lissette/uL (NEGATIVE) H 06/13/18 12:15 Urine RBC 1 - 3 /hpf (0-2) 06/13/18 12:15 Urine WBC 10 - 15 /hpf (0-6) 06/13/18 12:15 Ur Epithelial Cells Many /hpf (0-5) 06/13/18 12:15 Amorphous Sediment Small 06/13/18 12:15 Urine Bacteria Small (NEG) 06/13/18 12:15 - Hospital Course Hospital Course: Roderick Velazquez, PGY-1 Discharge Summary for Hospitalist Service 52 y/o F with PMHx of diverticulitis s/p hemicolectomy and fistula in '05, HTN, ectopic , COPD, who presents for abdominal pain. CT abd/pelvis showed diverticulitis without evidence of abscess or free air, severe mural thickening and inflammation along with descending colon lesion. Patient was placed on Morphine for pain control, Zofran and Protonix for nausea. GI was consulted (Dr. Nunez), who initially recommended Rocephin Flagyl and clear liquid diet. Patient was slowly advanced as tolerated full liquid diet and then to soft diet and then regular diet. Surgery was consulted (Dr. Smalls) and they recommended advancing diet as tolerated,PO antibiotics and colonoscopy in 6-8 weeks. She was not seen to be a surgical candidate and was subsequently cleared for discharge. MRI abd/pelvis on 06/15 was ordered to evaluate descending colon lesion. It showed severe mural thickening and associated inflammatory changes involving the left colon identified on CT performed 06/13/18 incompletely imaged on this MRI of the pelvis. Inflammatory changes are evident involving the included portions of the left colon at the superior margin of this examination. Bowel anastomosis with the lower pelvis. The appendix is not identified consistent with appendectomy. Please note that malignant neoplasm of the colon cannot be excluded on the basis of a noncontrast MRI of the abdomen or pelvis. 3.8 cm right ovarian cyst. Mild pelvic free fluid. Patient complained of bilateral headache, no associated Nausea, vomiting or blurry vision. Patient received Tylenol, which helped resolve the pain. Patient had episode of hypokalemia, which resolved with repletion of potassium chloride. For patient Hx of COPD, Duonebs were utilized and patient was counseled to stop smoking on multiple occasions over course of hospitalization. Patient was provided nicotine patch. For prophylaxis, patient was on Protonix IV as well as SCDs. Patient reported nonpruritic rash on arms and abdomen after Flagyl infusion on day 3, after which Benadryl given. Flagyl was put on hold pending ID choice of ABx. Documented allergy to Levaquin. ID was consulted (Dr. Pham) who initially recommended Clindamycin and Azactam, which was changed to oral options. Upon discharge, plan for colonoscopy in 6-[address] Nunez to evaluate lesions. Patient was told to follow up with PCP Dr. Duarte within one week as well as follow up with your OBGYN for ? transvaginal ultrasound within one week for ovarian cyst. Patient was prescribed a 7 day course of Bactrim and Clindamycin in light of allergies. Patient's was at bedside. Course was reviewed with patient and all questions were answered in detail and to patient satisfaction. Patient verbalized understanding and need for follow up regarding colonoscopy and OBGYN. Patient hemodynamically stable, abdominal pain has resolved, and rash is no longer apparent. Patient prepared for discharge. For more complete details, please see full chart in EMR. Patient seen, case reviewed and plan approved by Dr. Lewis. Discharge Exam - Additional Findings Additional findings: - Constitutional Appears: Non-toxic, No Acute Distress - Head Exam Head Exam: ATRAUMATIC, NORMAL INSPECTION, NORMOCEPHALIC - Eye Exam Eye Exam: EOMI, Normal appearance, PERRL - Respiratory Exam Respiratory Exam: Clear to Auscultation Bilateral, NORMAL BREATHING PATTERN. absent: Accessory Muscle Use, Decreased Breath Sounds, Rales, Rhonchi, Wheezes, Respiratory Distress, Stridor - Cardiovascular Exam Cardiovascular Exam: RRR, +S1, +S2. absent: Diastolic murmur, Gallop, Rubs - GI/Abdominal Exam GI & Abdominal Exam: Guarding LLQ, Normal Bowel Sounds, Soft, Tenderness (Present in LLQ). absent: Rigid - Extremities Exam Extremities exam: Positive for: full ROM, normal capillary refill, normal inspection, pedal pulses present. Negative for: calf tenderness, pedal edema - Back Exam Back exam: NORMAL INSPECTION. absent: CVA tenderness (L), CVA tenderness (R) - Neurological Exam Neurological exam: Alert, Oriented x3 - Psychiatric Exam Psychiatric exam: Normal Affect, Normal Mood - Skin Skin Exam: Dry, Intact, Normal Color, Warm, resolved nonpruritic nonerythematous subepidermal raised rash on arms and abdomen Discharge Plan - Discharge Medications Prescriptions: RX: Clindamycin [Cleocin] 300 mg PO Q6H 7 Days #30 cap RX: Pantoprazole [Protonix EC Tab] 40 mg PO ACB #30 ect Sulfamethoxazole/Trimethoprim [Bactrim DS 800 mg-160 mg] 1 tab PO BID 7 Days #14 tab - Follow Up Plan Condition: IMPROVED Disposition: HOME/ ROUTINE Patient education suggested?: Yes Instructions: Diverticulitis (DC), [place] Diet, Nausea and Vomiting, Adult (DC) Additional Instructions: Please schedule colonoscopy in 6-[address] Nunez. His # is [phone]. Please follow up with your PCP Dr. Duarte within one week. Please follow up with your OBGYN for ? transvaginal ultrasound within one week for ovarian cyst. Please complete your medications, including two antibiotics, as prescribed. Should symptoms worsen, please visit nearest emergency department. Referrals: Mert Duarte MD [Primary Care Provider] - <Kraig Lewis - Last Filed: 06/17/18 16:56> Provider - Provider Date of Admission: 06/13/18 15:52 Attending physician: Lorie Browne MD Primary care physician: Mert Duarte MD Consults: 06/13/18 17:01 Gastroenterology Consult Routine Comment: Consulting Provider: Steve Nunez V Consulting Physician: Steve Nunez V Reason for Consult: Diverticulitis General Surgery Consult Routine Comment: Consulting Provider: Lucas Eastman Consulting Physician: Lucas Eastman Reason for Consult: Diverticulitis w/ hx of hemicolectomy 06/16/18 13:08 Infectious Disease Consult Routine Comment: Consulting Provider: Shade Olea Consulting Physician: Shade Olea Reason for Consult: PO antibiotic coverage, allergies to levaquin and ? flagyl Hospital Course - Lab Results Lab Results: Micro Results 06/13/18 15:15 Blood Blood Culture - Preliminary NO GROWTH AFTER 4 DAYS 06/13/18 12:40 Blood Blood Culture - Preliminary NO GROWTH AFTER 4 DAYS 06/13/18 12:15 Urine Urine Culture - Final 10-50,000 CFU/ML. MULTIPLE SPECIES. PROBABLE CONTAMINATION. Most Recent Lab Values WBC 7.7 10^3/uL (4.5-11.0) D 06/17/18 05:30 RBC 4.48 10^6/uL (3.5-6.1) 06/17/18 05:30 Hgb 13.8 g/dL (12.0-16.0) 06/17/18 05:30 Hct 40.2 % (36.0-48.0) 06/17/18 05:30 MCV 89.7 fl (80.0-105.0) 06/17/18 05:30 MCH 30.8 pg (25.0-35.0) 06/17/18 05:30 MCHC 34.3 g/dl (31.0-37.0) 06/17/18 05:30 RDW 13.7 % (11.5-14.5) 06/17/18 05:30 Plt Count 239 10^3/uL (120.0-450.0) 06/17/18 05:30 MPV 10.1 fl (7.0-11.0) 06/17/18 05:30 Gran % 78.5 % (50.0-68.0) H 06/17/18 05:30 Lymph % (Auto) 13.8 % (22.0-35.0) L 06/17/18 05:30 Brooks % (Auto) 4.2 % (1.0-6.0) 06/17/18 05:30 Eos % (Auto) 3.4 % (1.5-5.0) 06/17/18 05:30 Baso % (Auto) 0.1 % (0.0-3.0) 06/17/18 05:30 Gran # 6.05 (1.4-6.5) 06/17/18 05:30 Lymph # (Auto) 1.1 (1.2-3.4) L 06/17/18 05:30 Brooks # (Auto) 0.3 (0.1-0.6) 06/17/18 05:30 Eos # (Auto) 0.3 (0.0-0.7) 06/17/18 05:30 Baso # (Auto) 0.01 K/mm3 (0.0-2.0) 06/17/18 05:30 PT 15.0 SECONDS (9.4-12.5) H 06/13/18 12:30 INR 1.30 06/13/18 12:30 APTT 28.3 Seconds (25.1-36.5) 06/13/18 12:30 Sodium 139 mmol/L (132-148) 06/17/18 05:30 Potassium 3.5 mmol/L (3.6-5.0) L 06/17/18 05:30 Chloride 105 mmol/L (98-107) 06/17/18 05:30 Carbon Dioxide 28 mmol/L (21-33) 06/17/18 05:30 Anion Gap 9 (10-20) L 06/17/18 05:30 BUN 19 mg/dL (7-21) 06/17/18 05:30 Creatinine 0.8 mg/dl (0.7-1.2) 06/17/18 05:30 Est GFR ( Amer) > 60 06/17/18 05:30 Est GFR (Non-Af Amer) > 60 06/17/18 05:30 Random Glucose 112 mg/dL (70-110) H 06/17/18 05:30 Calcium 8.8 mg/dL (8.4-10.5) 06/17/18 05:30 Magnesium 1.8 mg/dL (1.7-2.2) 06/13/18 12:30 Total Bilirubin 0.6 mg/dL (0.2-1.3) 06/17/18 05:30 AST 21 U/L (14-36) 06/17/18 05:30 ALT 30 U/L (7-56) 06/17/18 05:30 Alkaline Phosphatase 61 U/L (38-126) 06/17/18 05:30 Total Protein 6.2 g/dL (5.8-8.3) 06/17/18 05:30 Albumin 3.5 g/dL (3.0-4.8) 06/17/18 05:30 Globulin 2.7 gm/dL 06/17/18 05:30 Albumin/Globulin Ratio 1.3 (1.1-1.8) 06/17/18 05:30 Lipase 26 U/L (23-300) 06/13/18 12:30 Urine Color Yellow (YELLOW) 06/13/18 12:15 Urine Appearance Cloudy (CLEAR) 06/13/18 12:15 Urine pH 6.0 (4.7-8.0) 06/13/18 12:15 Ur Specific [place] >= 1.030 (1.005-1.035) 06/13/18 12:15 Urine Protein >=300 mg/dL (<30 mg/dL) H 06/13/18 12:15 Urine Glucose (UA) Negative mg/dL (NEGATIVE) 06/13/18 12:15 Urine Ketones Trace mg/dL (NEGATIVE) H 06/13/18 12:15 Urine Blood Large (NEGATIVE) H 06/13/18 12:15 Urine Nitrate Negative (NEGATIVE) 06/13/18 12:15 Urine Bilirubin Small (NEGATIVE) H 06/13/18 12:15 Urine Urobilinogen 0.2 E.U./dL (<1 E.U./dL) 06/13/18 12:15 Ur Leukocyte Esterase Trace Lissette/uL (NEGATIVE) H 06/13/18 12:15 Urine RBC 1 - 3 /hpf (0-2) 06/13/18 12:15 Urine WBC 10 - 15 /hpf (0-6) 06/13/18 12:15 Ur Epithelial Cells Many /hpf (0-5) 06/13/18 12:15 Amorphous Sediment Small 06/13/18 12:15 Urine Bacteria Small (NEG) 06/13/18 12:15 Attending/Attestation - Attestation I have personally seen and examined this patient.: Yes I have fully participated in the care of the patient.: Yes I have reviewed all pertinent clinical information, including history, physical exam and plan: Yes
--- NOTE | 2018-06-17 22:27 | CON ---
DATE: 06/17/2018 The patient is in room 560, bed 1. CHIEF COMPLAINT: Abdominal pain and rash which she has developed in the hospital. HISTORY OF PRESENT ILLNESS: This is a 52-year-old female with history of diverticulitis complicated by colovaginal fistula, chronic obstructive lung disease from long-time smoking, history of emphysema and hypertension, who had surgery in the past, ectopic surgery and sigmoidectomy, WHO HAS HAD LEVAQUIN AN OUTPATIENT AND WHO HAS HAD AN ALLERGIC REACTION TO LEVAQUIN, SHE DEVELOPED A RASH, was admitted with a diagnosis of diverticular disease last night. Somewhere between the Flagyl and the ceftriaxone, the patient developed a rash, it is unclear which antibiotic, although it is documented it occurred after the Flagyl, and Infectious Disease consultation requested. The patient has had low-grade fevers, no chills. Abdominal pain is improved. No dysuria or frequency. No cough. No headaches. No blurred vision. PAST MEDICAL HISTORY: Significant for diverticulitis with colovaginal fistula, chronic obstructive lung disease, hypertension. PAST SURGICAL HISTORY: Significant for ectopic and sigmoidectomy. ALLERGIES: THE PATIENT IS ALLERGIC TO LEVAQUIN. MEDICATIONS: Reviewed. PHYSICAL EXAMINATION: GENERAL: She is in bed, awake and alert, answering questions appropriately. VITAL SIGNS: Temperature of 97, T-max is 99, blood pressure is 104/60, respiratory rate of 20, heart rate of 110. HEENT: Unremarkable. NECK: Supple. LUNGS: Have decreased breath sounds. HEART: Normal S1, S2. ABDOMEN: Soft, nontender. SKIN: There is a diffuse erythematous rash throughout her body including the lower extremities and arms. LABORATORY EXAMINATION: Reveals white count on admission was 11,700. BUN of 19, creatinine 0.8. Urinalysis is noted. Microbiology reveals the blood cultures are negative. Urine culture is contamination. CAT scan of the abdomen is diverticulitis. The patient had a pelvic MRI which is reviewed. ASSESSMENT AND PLAN: This is a 52-year-old female, long-time smoker, with diverticulitis, chronic obstructive pulmonary disease, hypertension, now presenting with acute diverticulitis a questionable rash, either ceftriaxone most likely, I doubt Flagyl. However, we can use clindamycin, Azactam. Upon discharge, p.o. Bactrim and p.o. clindamycin may be an option to use and follow up with GI. We will order an HIV because of her age. We will follow with you. Micah Pham MD
== END 2018-06-17 14:46 | disposition home or self-care (01) | DRG 182 ==
LOC: ED 11:48 → ERH 15:52 → 5RNO 23:18
PROVIDERS: ADMIT Internal Medicine; ATTEND Internal Medicine
DX: K57.32 Diverticulitis of large intestine without perforation or abscess without bleeding (principal); E87.6 Hypokalemia; J43.9 Emphysema, unspecified; N82.3 Fistula of vagina to large intestine; I10 Essential (primary) hypertension; N83.201 Unspecified ovarian cyst, right side; R51 Headache; Z87.891 Personal history of nicotine dependence